=== PATIENT | male | born 1950 | race American Indian/Alaskan Native ===

== ENCOUNTER 2016-09-21 12:26 | Inpatient (IN) | payer MEDICARE ==
[2016-09-21 13:18] LABS: Basophils % (Auto) 0.6 % (0.0-1.8); Eosinophils % (Auto) 1.5 % (0.0-4.3); Hemoglobin 13.6 gm/dl (11.8-15.2); Mean Corpuscular HGB Conc 33 % (32-34); Mean Corpuscular Hemoglobin 31 pg (28-32); Mean Corpuscular Volume 92 fl (84-94); Platelet Count 149 K/mm3 (140-440); Red Blood Count 4.45 M/mm3 (3.65-5.03); Red Cell Distribution Width 13.8 % (13.2-15.2); White Blood Count 6.1 K/mm3 (4.5-11.0)
[2016-09-21 13:38] LABS: Anion Gap 16 mmol/L; Blood Urea Nitrogen 16 mg/dL (9-20); Calcium 8.8 mg/dL (8.4-10.2); Carbon Dioxide 28 mmol/L (22-30); Chloride 102.1 mmol/L (98-107); Glucose 98 mg/dL (75-100); Sodium 142 mmol/L (137-145)
--- NOTE | 2016-09-21 13:45 | XRay Report ---
CHEST TWO VIEWS: 09/21/16 12:26:00 CLINICAL: Shortness of breath. COMPARISON: 08/22/15 FINDINGS: Cardiomegaly and redistribution of pulmonary blood flow to the upper lobes. The lungs are normally expanded and clear. The bones and soft tissues are normal. IMPRESSION: Cardiomegaly and pulmonary venous hypertension.No pulmonary edema.
[2016-09-21 14:29] LABS: Cholesterol 163 mg/dL (50-199); HDL Cholesterol 45 mg/dL (40-59); LDL Cholesterol,Direct 105 mg/dL (50-130); Triglycerides 66 mg/dL (2-149)
[2016-09-21] MEDS ORDERED: PROVENTIL IH ONE ×2 (16:27)
[2016-09-21] MEDS ORDERED: CATAPRES PO ONE (22:28)
[2016-09-21] MEDS ORDERED: LASIX IV ONE (22:28)
--- NOTE | 2016-09-21 22:34 | Emergency Department Report ---
HPI - General Chief Complaint: Dyspnea/Respdistress Time Seen by Provider: 09/21/16 21:47 - HPI HPI: Room 10 The patient is a 65-year-old male presenting with a chief complaint of shortness of breath. Patient states she's had constant shortness of breath over the past 2 weeks. Patient admits to increased shortness of breath with exertion. Patient states he has been out of his Lasix for the past 2 days. Patient denies chest pain, nausea/vomiting or fever. The patient states he has recently changed from 2-3 pillow orthopnea Location: Cardiovascular system/lungs Duration: 2 weeks Quality: Shortness Of breath Severity: Moderate Modifying factors: [see above] Context: [see above] Mode of transportation: [not driving] ED Past Medical Hx - Past Medical History Hx Hypertension: Yes Hx Congestive Heart Failure: Yes - Surgical History Past Surgical History?: No - Family History Family history: no significant - Social History Smoking Status: Former Smoker (none 20 years) Substance Use Type: None - Medications Home Medications: Home Medications Medication Instructions Recorded Confirmed Last Taken Type Carvedilol [Coreg] 25 mg PO BID #60 tablet 08/24/15 Unknown Rx Furosemide [Lasix TAB] 40 mg PO QDAY #30 tablet 08/24/15 Unknown Rx ISOSORBIDE MONOnitrate [Imdur ER] 30 mg PO QDAY #30 tablet 08/24/15 Unknown Rx Losartan [Cozaar] 100 mg PO QDAY #60 tablet 08/24/15 Unknown Rx amLODIPine [Norvasc] 5 mg PO QDAY #30 tablet 08/24/15 Unknown Rx hydrALAZINE [Apresoline TAB] 100 mg PO BID #240 tablet 08/24/15 Unknown Rx ED Review of Systems ROS: Stated complaint: SOB Other details as noted in HPI Comment: All other systems reviewed and negative Constitutional: denies: chills, fever Eyes: denies: eye pain, eye discharge, vision change ENT: denies: ear pain, throat pain Respiratory: cough, orthopnea, shortness of breath, SOB with exertion Cardiovascular: dyspnea on exertion. denies: chest pain, palpitations Endocrine: no symptoms reported Gastrointestinal: denies: abdominal pain, nausea, diarrhea Genitourinary: denies: urgency, dysuria Musculoskeletal: denies: back pain, joint swelling, arthralgia Skin: denies: rash, lesions Neurological: denies: headache, weakness, paresthesias Psychiatric: denies: anxiety, depression Hematological/Lymphatic: denies: easy bleeding, easy bruising Physical Exam - Physical Exam Vital Signs: Vital Signs 09/21/16 09/21/16 09/21/16 12:44 22:16 22:23 Temperature 98.2 F Pulse Rate 73 85 Respiratory 20 17 17 Rate Blood Pressure 193/116 Blood Pressure 214/135 [Right] O2 Sat by Pulse 99 99 Oximetry Physical Exam: GENERAL: The patient is well-developed well-nourished male lying on stretcher not appearing to be in acute distress. [] HEENT: Normocephalic. Atraumatic. Extraocular motions are intact. Patient has moist mucous membranes. NECK: Supple. Trachea midline CHEST/LUNGS: Clear to auscultation. There is no respiratory distress noted. HEART/CARDIOVASCULAR: Regular. There is no tachycardia. There is no gallop rub or murmur. ABDOMEN: Abdomen is soft, nontender. Patient has normal bowel sounds. There is no abdominal distention. SKIN: There is no rash. There is trace bilateral lower extremity pitting edema. There is no diaphoresis. NEURO: The patient is awake, alert, and oriented. The patient is cooperative. The patient has normal speech MUSCULOSKELETAL: There is no evidence of acute injury. ED Course Vital Signs 09/21/16 09/21/16 09/21/16 12:44 22:16 22:23 Temperature 98.2 F Pulse Rate 73 85 Respiratory 20 17 17 Rate Blood Pressure 193/116 Blood Pressure 214/135 [Right] O2 Sat by Pulse 99 99 Oximetry ED Medical Decision Making - Lab Data Result diagrams: 09/21/16 13:02 09/21/16 13:02 Laboratory Tests 09/21/16 09/21/16 13:02 13:02 WBC 6.1 RBC 4.45 Hgb 13.6 Hct 41.0 MCV 92 MCH 31 MCHC 33 RDW 13.8 Plt Count 149 Lymph % (Auto) 23.0 [place] % (Auto) 15.3 H Eos % (Auto) 1.5 Baso % (Auto) 0.6 Lymph # 1.4 [place] # 0.9 H Eos # 0.1 Baso # 0.0 Seg Neutrophils % 59.6 Seg Neutrophils # 3.7 Sodium 142 Potassium 4.0 Chloride 102.1 Carbon Dioxide 28 Anion Gap 16 BUN 16 Creatinine 1.3 Estimated GFR > 60 BUN/Creatinine Ratio 12.30 Glucose 98 Calcium 8.8 Troponin T 0.036 H Triglycerides 66 Cholesterol 163 LDL Cholesterol Direct 105 HDL Cholesterol 45 Cholesterol/HDL Ratio 3.62 - EKG Data -: EKG Interpreted by Me EKG shows normal: sinus rhythm Rate: normal - EKG Data When compared to previous EKG there are: no significant change Interpretation: unchanged when compared t (08/22/2015), nonspecific ST-T wave elvis - Radiology Data Radiology results: image reviewed (chest x-ray) interpreted by me: Chest x-ray-no definite focal infiltrates, no pneumothorax - Differential Diagnosis CHF exacerbation, ACS, pericarditis, pneumonia Critical care attestation.: If time is entered above; I have spent that time in minutes in the direct care of this critically ill patient, excluding procedure time. ED Disposition Clinical Impression: Hypertensive urgency, CHF exacerbation Disposition: OP ADMITTED IP TO THIS HOSP Is pt being admited?: Yes Does the pt Need Aspirin: Yes Condition: Fair Referrals: PRIMARY CARE, [Primary Care Provider] - 3-5 Days Time of Disposition: 22:35 (Hospitalist notified)
[2016-09-21] MEDS ORDERED: ASPIRIN PO ONE (22:36)
--- NOTE | 2016-09-21 22:39 | History and Physical Report ---
History of Present Illness Chief complaint: I cant breathe History of present illness: 65 YO Male with HTN, Diastolic CHF, Medication Noncompliance, presents to ED for evaluation. Pt states that he has experienced shortness of breath for the past 2 weeks with worsening symptoms over the past 2 days. Pt acknowledges Orthopnea, PND. Pt states that he has not taken his medication in several days. Pt denies fever, chills, CP, Palpitaitons, NVD, productive cough, Hemoptysis, recent ill contacts. Past History Past Medical History: heart failure, hypertension Past Surgical History: No surgical history, Other (reviewed) Social history: . denies: smoking, alcohol abuse, prescription drug abuse Family history: hypertension Medications and Allergies Allergies Allergy/AdvReac Type Severity Reaction Status Date / Time No Known Allergies Allergy Unverified 08/22/15 08:53 Home Medications Medication Instructions Recorded Confirmed Last Taken Type Carvedilol [Coreg] 25 mg PO BID #60 tablet 08/24/15 Unknown Rx Furosemide [Lasix TAB] 40 mg PO QDAY #30 tablet 08/24/15 Unknown Rx ISOSORBIDE MONOnitrate [Imdur ER] 30 mg PO QDAY #30 tablet 08/24/15 Unknown Rx Losartan [Cozaar] 100 mg PO QDAY #60 tablet 08/24/15 Unknown Rx amLODIPine [Norvasc] 5 mg PO QDAY #30 tablet 08/24/15 Unknown Rx hydrALAZINE [Apresoline TAB] 100 mg PO BID #240 tablet 08/24/15 Unknown Rx Exam - Constitutional Vitals: Temp Pulse Resp BP Pulse Ox 98.2 F 85 17 214/135 99 09/21/16 12:44 09/21/16 22:23 09/21/16 22:23 09/21/16 22:23 09/21/16 22:23 General appearance: Present: no acute distress, well-nourished - EENT Eyes: Present: PERRL ENT: hearing intact, clear oral mucosa - Neck Neck: Present: supple, normal ROM - Respiratory Respiratory effort: normal Respiratory: bilateral: CTA - Cardiovascular Heart Sounds: Present: S1 & S2. Absent: rub, click - Extremities Extremities: pulses symmetrical, No edema Peripheral Pulses: within normal limits - Abdominal General gastrointestinal: Present: soft, non-tender, non-distended, normal bowel sounds Male genitourinary: Present: normal - Integumentary Integumentary: Present: clear, warm, dry - Musculoskeletal Musculoskeletal: gait normal, strength equal bilaterally - Psychiatric Psychiatric: appropriate mood/affect, intact judgment & insight - Neurologic Neurologic: CNII-XII intact, moves all extremities Results - Labs CBC & Chem 7: 09/21/16 13:02 09/21/16 13:02 Labs: Abnormal lab results 09/21/16 09/21/16 Range/Units 13:02 13:02 Young % (Auto) 15.3 H (0.0-7.3) % Young # 0.9 H (0.0-0.8) K/mm3 Troponin T 0.036 H (0.00-0.029) ng/mL Assessment and Plan - Patient Problems (1) Acute on chronic diastolic heart failure Current Visit: No Status: Acute Plan to address problem: Resume home medication, diuretics, monitor uop q shift, daily weight, fluid restriction, 2 gram sodium diet, telemetry monitoring, serial cardiac enzymes, d dimer. (2) Hypertensive urgency Current Visit: No Status: Acute Plan to address problem: Resume home medication, monitor bp q shift, Target systolic BP overnight, between 165-180. (3) Noncompliance Current Visit: No Status: Acute Plan to address problem: Pt counseled, Pt acknowledges understanding risks of future noncompliance (4) DVT prophylaxis Current Visit: Yes Status: Acute
[2016-09-21] MEDS ORDERED: DUONEB 0.5 MG-3 MG/3 ML SOLN IH PRN (22:44)
[2016-09-21] MEDS ORDERED: TYLENOL PO PRN (22:44)
[2016-09-21] MEDS ORDERED: MILK OF MAGNESIA PO PRN (22:44)
[2016-09-21] MEDS ORDERED: ZOFRAN IV PRN (22:44)
[2016-09-21] MEDS ORDERED: DULCOLAX PR PRN (22:44)
[2016-09-21] MEDS ORDERED: SODIUM CHLORIDE FLUSH SYRINGE 10 ML IV PRN (22:47)
[2016-09-21] MEDS ORDERED: PROVENTIL IH PRN (23:25)
[2016-09-21] MEDS ORDERED: LASIX ONE (23:36)
[2016-09-21] MEDS ORDERED: CATAPRES ONE (23:36)
[2016-09-22] MEDS ORDERED: ASPIRIN ONE (00:09)
--- NOTE | 2016-09-22 00:09 | Admit Criteria Form ---
Admission Criteria Documentation: HYPERTENSION Clinical Indications for Admission to Inpatient Care ( Place "X" for any and all applicable criteria): Admission is indicated for ANY ONE of the following(1)(2)(3)(4): [ ]I. Hypertensive emergency, with evidence of acute and progressing target organ disease as indicated by ANY ONE of the following: [ ]a) Hypertensive encephalopathy (eg, confusion, altered mental status) [ ]b) Cerebral infarction [ ]c) Intracranial hemorrhage [ ]d) Myocardial ischemia or infarction [ ]e) Pulmonary edema [ ]f) Aortic dissection [ ]g) Seizure [ ]h) Acute renal insufficiency [ ]i) Papilledema [ ]j) Microangiopathic hemolytic anemia [ ]II. Adrenergic crisis (eg, severe hypertension due to pheochromocytoma crisis, cocaine or amphetamine intoxication, or clonidine withdrawal) [X ]III. Severe hypertension (SBP greater than 180 mmHg or DBP greater than 110 mmHg or greater than the 95th percentile for age, gender, and height in pediatric patients) that cannot be controlled (eg, to SBP less than 160 mmHg and DBP less than 100 mmHg in adults) by treatment with oral medication in emergency department or observation care Extended stay beyond goal length of stay may be needed for(11)(12)(13): [ ]a) Persistent hypertensive encephalopathy [ ]b) Continuation of pulmonary edema [ ]c) Recurring or persistent severe hypertension [ ]d) Target organ damage (eg, angina, stroke, aortic dissection) [ ]e) Associated renal insufficiency The original [employer] content created by [employer] has been revised. The portions of the content which have been revised are identified through the use of italic text or in bold, and [facility] has neither reviewed nor approved the modified material. All other unmodified content is copyright [employer]. Please see references footnoted in the original [employer] edition 2016 Admission Criteria Met: Yes
[2016-09-22 02:50] LABS: Creatine Kinase MB 2.2 ng/mL (0.0-4.0)
[2016-09-22 08:53] LABS: Creatine Kinase MB 2.1 ng/mL (0.0-4.0)
[2016-09-22] MEDS: COZAAR PO SCH (09:59)
[2016-09-22] MEDS: LASIX PO SCH (10:00)
[2016-09-22] MEDS: IMDUR PO SCH (10:00)
[2016-09-22] MEDS: NORVASC PO SCH (10:01)
[2016-09-22] MEDS: APRESOLINE PO SCH ×2 (10:02→21:36)
[2016-09-22] MEDS: COREG PO SCH ×2 (10:02→21:36)
--- NOTE | 2016-09-22 15:38 | Progress Note ---
Assessment and Plan Assessment and plan: 65 YO Male with HTN, Diastolic CHF, Medication Noncompliance, presents to ED for evaluation. Pt states that he has experienced shortness of breath for the past 2 weeks with worsening symptoms over the past 2 days. Pt acknowledges Orthopnea, PND. Pt states that he has not taken his medication in several days. Pt denies fever, chills, CP, Palpitaitons, NVD, productive cough, Hemoptysis, recent ill contacts. (1) Acute on chronic diastolic heart failure Current Visit: No Status: Acute Plan to address problem: Resume home medication, diuretics, monitor uop q shift, daily weight, fluid restriction, 2 gram sodium diet, telemetry monitoring, serial cardiac enzymes, d dimer. last echo 08/22/2015 reviewed, EF 50-55% cardiology consultation. SCHEDULED NEBS (2) Hypertensive urgency Current Visit: No Status: Acute Plan to address problem: Resume home medication, monitor bp q shift, Target systolic BP overnight, between 165-180. (3) Noncompliance Current Visit: No Status: Acute Plan to address problem: Pt counseled, Pt acknowledges understanding risks of future noncompliance (4) possible COPD hx of tobacco abuse. SCHEDULE NEBS RECOMMEND PFT OUTPATIENT. (5) DVT prophylaxis Current Visit: Yes Status: Acute History Interval history: Patient seen and examined this morning and in no acute distress reports some improvement in symptoms. Hospitalist Physical - Physical exam Narrative exam: VITAL SIGNS: Reviewed. GENERAL: The patient appeared well nourished and normally developed. Vital signs as documented. HEAD: No signs of head trauma. EYES: Pupils are equal. Extraocular motions intact. EARS: Hearing grossly intact. MOUTH: Oropharynx is normal. NECK: No adenopathy, no JVD. CHEST: Chest with diminished breath sounds bilaterally. Mild expiratory wheeze but no rales or rhonchi. CARDIAC: Regular rate and rhythm. S1 and S2, without murmurs, gallops, or rubs. VASCULAR: No Edema. Peripheral pulses normal and equal in all extremities. ABDOMEN: Soft, without detectable tenderness. No sign of distention. No rebound or guarding, and no masses palpated. Bowel Sounds normal. MUSCULOSKELETAL: Good range of motion of all major joints. Extremities without clubbing, cyanosis or edema. NEUROLOGIC EXAM: Alert and oriented x 3. No focal sensory or strength deficits. Speech normal. Follows commands. PSYCHIATRIC: Mood normal. SKIN: No rash or lesions. - Constitutional Vitals: Temp Pulse Resp BP Pulse Ox 98.9 F 67 18 106/58 99 09/22/16 10:06 09/22/16 13:36 09/22/16 10:06 09/22/16 13:36 09/22/16 10:06 General appearance: Present: no acute distress, well-nourished Results - Labs CBC & Chem 7: 09/21/16 13:02 09/21/16 13:02 Labs: Laboratory Last Values WBC 6.1 K/mm3 (4.5-11.0) 09/21/16 13:02 RBC 4.45 M/mm3 (3.65-5.03) 09/21/16 13:02 Hgb 13.6 gm/dl (11.8-15.2) 09/21/16 13:02 Hct 41.0 % (35.5-45.6) 09/21/16 13:02 MCV 92 fl (84-94) 09/21/16 13:02 MCH 31 pg (28-32) 09/21/16 13:02 MCHC 33 % (32-34) 09/21/16 13:02 RDW 13.8 % (13.2-15.2) 09/21/16 13:02 Plt Count 149 K/mm3 (140-440) 09/21/16 13:02 Lymph % (Auto) 23.0 % (13.4-35.0) 09/21/16 13:02 [place] % (Auto) 15.3 % (0.0-7.3) H 09/21/16 13:02 Eos % (Auto) 1.5 % (0.0-4.3) 09/21/16 13:02 Baso % (Auto) 0.6 % (0.0-1.8) 09/21/16 13:02 Lymph # 1.4 K/mm3 (1.2-5.4) 09/21/16 13:02 [place] # 0.9 K/mm3 (0.0-0.8) H 09/21/16 13:02 Eos # 0.1 K/mm3 (0.0-0.4) 09/21/16 13:02 Baso # 0.0 K/mm3 (0.0-0.1) 09/21/16 13:02 Seg Neutrophils % 59.6 % (40.0-70.0) 09/21/16 13:02 Seg Neutrophils # 3.7 K/mm3 (1.8-7.7) 09/21/16 13:02 D-Dimer < 135 ng/mlDDU (0-234) 09/21/16 23:20 Sodium 142 mmol/L (137-145) 09/21/16 13:02 Potassium 4.0 mmol/L (3.6-5.0) 09/21/16 13:02 Chloride 102.1 mmol/L (98-107) 09/21/16 13:02 Carbon Dioxide 28 mmol/L (22-30) 09/21/16 13:02 Anion Gap 16 mmol/L 09/21/16 13:02 BUN 16 mg/dL (9-20) 09/21/16 13:02 Creatinine 1.3 mg/dL (0.8-1.5) 09/21/16 13:02 Estimated GFR > 60 ml/min 09/21/16 13:02 BUN/Creatinine Ratio 12.30 % 09/21/16 13:02 Glucose 98 mg/dL (75-100) 09/21/16 13:02 Calcium 8.8 mg/dL (8.4-10.2) 09/21/16 13:02 Total Creatine Kinase 100 units/L (55-170) 09/22/16 08:06 CK-MB (CK-2) 2.1 ng/mL (0.0-4.0) 09/22/16 08:06 CK-MB (CK-2) Rel Index 2.1 (0-4) 09/22/16 08:06 Troponin T 0.038 ng/mL (0.00-0.029) H 09/22/16 08:06 Triglycerides 66 mg/dL (2-149) 09/21/16 13:02 Cholesterol 163 mg/dL (50-199) 09/21/16 13:02 LDL Cholesterol Direct 105 mg/dL (50-130) 09/21/16 13:02 HDL Cholesterol 45 mg/dL (40-59) 09/21/16 13:02 Cholesterol/HDL Ratio 3.62 % 09/21/16 13:02 - Imaging and Cardiology Chest x-ray: image reviewed (pulmonary vascular congestion)
[2016-09-22] MEDS ORDERED: DUONEB 0.5 MG-3 MG/3 ML SOLN IH SCH (20:00)
[2016-09-23] MEDS ORDERED: DUONEB 0.5 MG-3 MG/3 ML SOLN IH SCH (08:00)
--- NOTE | 2016-09-23 08:37 | Discharge Summary ---
Providers - Providers Date of Admission: 09/21/16 22:44 Date of discharge: 09/23/16 Attending physician: DOUGLAS PLUMMER MD 09/21/16 Consult to Cardiac Rehabilitation [CONS] Routine Reason For Exam: Phase I 09/22/16 09:30 Consult to Physician [CONS] Routine Consulting Provider: ALEXANDRA ALMENDAREZ Reason For Exam: chf Place consult to:: Dr. Almendarez Notified:: Ligia HANKS Phone number called:: Was contact made?: Yes If yes, spoke with:: [employer] Time called:: 10:22 Primary care physician: [employer] Hospitalization Reason for admission: chest pain Condition: Stable Hospital course: 65 YO Male with HTN, Diastolic CHF, Medication Noncompliance, presents to ED for evaluation. Pt states that he has experienced shortness of breath for the past 2 weeks with worsening symptoms over the past 2 days. Pt acknowledges Orthopnea, PND. Pt states that he has not taken his medication in several days. Pt denies fever, chills, CP, Palpitaitons, NVD, productive cough, Hemoptysis, recent ill contacts. Patient on admission was given a dose of Lasix with good improvement. I did review his recent echocardiogram which showed an EF of 50-55 %. With diastolic dysfunction. We did discuss need to be compliant patient verbalized understanding he does have a remote history of tobacco use for which I recommended outpatient evaluation for obstructive pulmonary disease. He is clinically stable at this time for discharge and to follow-up with cardiology outpatient with his primary care physician. Leroy. Discussion and education was provided (1) Acute on chronic diastolic heart failure (2) Hypertensive urgency (3) Noncompliance (4) acute on chronic respiratory failure secondary to heart failure Disposition: DISCHARGED TO HOME OR SELFCARE Time spent for discharge: 35 mins Core Measure Documentation - Palliative Care Palliative Care/ Comfort Measures: Not Applicable - Core Measures Any of the following diagnoses?: heart failure - Heart Failure Discharge Requirements MELODY/ARB for LVSD if EF <40%: Not Applicable Beta eva at discharge: Yes Exam - Physical Exam Narrative exam: VITAL SIGNS: Reviewed. GENERAL: The patient appeared well nourished and normally developed. Vital signs as documented. HEAD: No signs of head trauma. EYES: Pupils are equal. Extraocular motions intact. EARS: Hearing grossly intact. MOUTH: Oropharynx is normal. NECK: No adenopathy, no JVD. CHEST: Chest with diminished breath sounds bilaterally. No wheeze but no rales or rhonchi. CARDIAC: Regular rate and rhythm. S1 and S2, without murmurs, gallops, or rubs. VASCULAR: No Edema. Peripheral pulses normal and equal in all extremities. ABDOMEN: Soft, without detectable tenderness. No sign of distention. No rebound or guarding, and no masses palpated. Bowel Sounds normal. MUSCULOSKELETAL: Good range of motion of all major joints. Extremities without clubbing, cyanosis or edema. NEUROLOGIC EXAM: Alert and oriented x 3. No focal sensory or strength deficits. Speech normal. Follows commands. PSYCHIATRIC: Mood normal. SKIN: No rash or lesions. - Constitutional Vitals: Temp Pulse Resp BP Pulse Ox 98.8 F 92 H 20 143/75 97 09/23/16 05:52 09/23/16 05:52 09/23/16 05:52 09/23/16 05:52 09/23/16 05:52 Plan Activity: advance as tolerated, fall precautions Special Instructions: record daily weights, record daily BP diary, record blood sugar diary, smoking cessation Follow up with: PRIMARY CARE, [Primary Care Provider] - 3-5 Days ALEXANDRA ALMENDAREZ MD [Staff Physician] - 7 Days Prescriptions: amLODIPine [Norvasc] 5 mg PO QDAY #30 tablet Carvedilol [Coreg] 25 mg PO BID #60 tablet Furosemide [Lasix TAB] 40 mg PO QDAY #30 tablet ISOSORBIDE MONOnitrate [Imdur ER] 30 mg PO QDAY #30 tablet
[2016-09-23] MEDS: LASIX PO SCH (10:33)
[2016-09-23] MEDS: COZAAR PO SCH (10:33)
[2016-09-23] MEDS: APRESOLINE PO SCH (10:34)
[2016-09-23] MEDS: IMDUR PO SCH (10:34)
[2016-09-23] MEDS: NORVASC PO SCH (10:35)
[2016-09-23] MEDS: COREG PO SCH (10:35)
[2016-09-23 12:14] VITALS: BP 110/55
--- NOTE | 2016-09-23 12:51 | Event Note ---
Date: 09/23/16 Full cardiology consult dictated. Pt may discharge home from cardiology standpoint. Recommend follow up in our office with Dr. VI Webb within 1 week of hospital discharge ([phone]). Manuela BLANKENSHIP NP / DR. BRIAN
--- NOTE | 2016-09-24 05:06 | Consultation ---
REASON FOR CONSULTATION: Congestive heart failure. HISTORY OF PRESENT ILLNESS: This is a 65-year-old patient who is followed in our office by Dr. Vinicio Webb, came to the Emergency Room with increasing symptoms of heart failure, namely orthopnea and dyspnea on exertion and edema of the legs. The patient did not take his medications for few days. The patient denies any chest pain. The patient was admitted last year with symptoms and signs of congestive heart failure. He was noted to have severe left ventricular hypertrophy and preserved ejection fraction to 55%. Impaired relaxation and moderate mitral regurgitation and [id number] aortic regurgitation, moderate tricuspid regurgitation noted at that time. MEDICATIONS: The patient is supposed to be on the following medications: 1. Carvedilol 25 mg b.i.d. 2. Lasix 40 mg once a day, which he ran out a few days ago. 3. Isosorbide mononitrate 30 mg once a day. 4. Losartan 100 mg once a day. 5. Amlodipine 5 mg a day. 6. Hydralazine 100 mg twice a day. PAST MEDICAL HISTORY: The patient is noted to have a nonischemic cardiomyopathy, and he has improved ejection fraction to normal levels. He does have normal coronaries from cardiac catheterization done in 2012. SOCIAL HISTORY: The patient is . He does not smoke. Does not take any alcohol. FAMILY HISTORY: Positive for hypertension. PHYSICAL EXAMINATION: VITAL SIGNS: Blood pressure upon admission 214/135, pulse rate 84 per minute, respirations 18 per minute, blood pressure has improved to 180/95 with mean blood pressure of 123. NECK: No JVP elevation. HEART: PMI is not palpable. S4 is noted. He has got grade 3/6 systolic murmur heard at the apex and also at left sternal border. LUNGS: Revealed few rales at the right base. ABDOMEN: Soft, nontender. Liver and spleen not palpable. Bowel sounds are active. EXTREMITIES: No edema. Good pulses. LABORATORY DATA: Normal WBC count 6100 and hemoglobin 13.6 grams percent. Potassium 4.0. BUN is 16, creatinine 1.3. Glucose 98 mg percent. Troponin levels are flat at 0.036. Cholesterol is 163 mg percent. LDL is 105 mg percent. HDL 45. IMAGING: Chest x-ray revealed cardiomegaly with pulmonary venous hypertension. EKG revealed left ventricular hypertrophy with ST-T wave changes. IMPRESSION: 1. Acute diastolic heart failure on chronic diastolic heart failure. 2. Extremely high blood pressure contributing to heart failure. 3. Nonischemic cardiomyopathy. 4. Hyperlipidemia, on treatment. DISCUSSION: The patient needs to control the blood pressure in the range of 130-140 systolic at the most. To be strict with the low-salt diet. I had talked to him about diet and compliance of medications. The patient can be discharged and to be followed within a week in the office for further management. JOB# [id number] LILIANA/NTS
== END 2016-09-23 13:21 | disposition home or self-care (01) | DRG 291 ==
LOC: ED 12:26 → 4A 22:44
PROVIDERS: ADMIT Internal Medicine; ATTEND Internal Medicine
DX: I11.0 Hypertensive heart disease with heart failure (principal); J96.20 Acute and chronic respiratory failure, unspecified whether with hypoxia or hypercapnia; I16.0 Hypertensive urgency; I50.33 Acute on chronic diastolic (congestive) heart failure; I42.9 Cardiomyopathy, unspecified; E78.5 Hyperlipidemia, unspecified; Z91.14 Patient's other noncompliance with medication regimen; Z71.89 Other specified counseling; Z87.891 Personal history of nicotine dependence; Z82.49 Family history of ischemic heart disease and other diseases of the circulatory system
CPT/HCPCS: 36415; 71020; 80048; 80061; 82550; 82553; 84484; 85025; 85379; 93005; 93010; 94640; 96374; J1940

== ENCOUNTER 2018-07-07 01:08 | Inpatient (IN) | payer MEDICARE, SELFPAY ==
[2018-07-07] MEDS ORDERED: APRESOLINE IV ONE (01:29)
[2018-07-07] MEDS ORDERED: ATROVENT IH ONE (01:30)
[2018-07-07] MEDS ORDERED: PROVENTIL IH ONE ×2 (01:30→01:34)
--- NOTE | 2018-07-07 01:41 | XRay Report ---
PROCEDURE: XR CHEST 1V AP TECHNIQUE: A portable upright view of the chest was obtained. HISTORY: Shortness of breath COMPARISONS: None available for comparison at this time. FINDINGS: The heart is moderately enlarged. The lungs are not congested. There are no infiltrates or effusions. The skeletal structures do not show any acute changes. IMPRESSION: Cardiomegaly. No acute cardiopulmonary process.. This document is electronically signed by Benton Odell MD., July 07 2018 01:40:03 AM ET
[2018-07-07 01:50] LABS: Basophils % (Auto) 0.3 % (0.0-1.8); Eosinophils % (Auto) 0.6 % (0.0-4.3); Hematocrit 40.6 % (35.5-45.6); Hemoglobin 13.7 gm/dl (11.8-15.2); Lymphocytes # (Auto) 1.3 K/mm3 (1.2-5.4); Lymphocytes % (Auto) 20.6 % (13.4-35.0); Mean Corpuscular HGB Conc 34 % (32-34); Mean Corpuscular Volume 91 fl (84-94); Monocytes # (Auto) 0.5 K/mm3 (0.0-0.8); Monocytes % (Auto) 8.3 % (0.0-7.3); Platelet Count 150 K/mm3 (140-440); Red Blood Count 4.48 M/mm3 (3.65-5.03); Red Cell Distribution Width 13.4 % (13.2-15.2)
[2018-07-07 02:13] LABS: BUN/Creatinine Ratio 11; Blood Urea Nitrogen 14 mg/dL (9-20); Calcium 8.7 mg/dL (8.4-10.2); Hemolysis Index 5
--- NOTE | 2018-07-07 02:13 | Emergency Department Report ---
ED Shortness of Breath HPI - General Chief Complaint: Dyspnea/Respdistress Stated Complaint: CHEST PAIN/SOB Time Seen by Provider: 07/07/18 01:28 Source: patient Mode of arrival: Wheelchair Limitations: No Limitations - History of Present Illness Initial Comments: 67-year-old male with history of CHF presents to ED with complaint of shortness of breath. Patient reports several day history of dry cough, denies fever. Reports very mild left-sided chest pain, denies swelling to lower extremities. MD Complaint: shortness of breath -: days(s) (3) Consistency: constant Improves With: nothing Worsens With: exertion Known History Of: congestive heart failure Context: recent URI Associated Symptoms: chest pain, cough - Related Data Previous Rx's Medication Instructions Recorded Last Taken Type Losartan [Cozaar] 100 mg PO QDAY #60 tablet 08/24/15 Unknown Rx hydrALAZINE [Apresoline TAB] 100 mg PO BID #240 tablet 08/24/15 Unknown Rx Carvedilol [Coreg] 25 mg PO BID #60 tablet 09/23/16 Unknown Rx Furosemide [Lasix TAB] 40 mg PO QDAY #30 tablet 09/23/16 Unknown Rx ISOSORBIDE MONOnitrate [Imdur ER] 30 mg PO QDAY #30 tablet 09/23/16 Unknown Rx amLODIPine [Norvasc] 5 mg PO QDAY #30 tablet 09/23/16 Unknown Rx Allergies Allergy/AdvReac Type Severity Reaction Status Date / Time No Known Allergies Allergy Unverified 08/22/15 08:53 ED Review of Systems ROS: Stated complaint: CHEST PAIN/SOB Other details as noted in HPI Comment: All other systems reviewed and negative Constitutional: denies: chills, fever Respiratory: cough, shortness of breath Cardiovascular: chest pain Musculoskeletal: other (denies lower extremity swelling or pain) ED Past Medical Hx - Past Medical History Previous Medical History?: Yes Hx Hypertension: Yes Hx Congestive Heart Failure: Yes - Surgical History Past Surgical History?: No - Social History Smoking Status: Never Smoker Substance Use Type: None - Medications Home Medications: Home Medications Medication Instructions Recorded Confirmed Last Taken Type Losartan [Cozaar] 100 mg PO QDAY #60 tablet 08/24/15 Unknown Rx hydrALAZINE [Apresoline TAB] 100 mg PO BID #240 tablet 08/24/15 Unknown Rx Carvedilol [Coreg] 25 mg PO BID #60 tablet 09/23/16 Unknown Rx Furosemide [Lasix TAB] 40 mg PO QDAY #30 tablet 09/23/16 Unknown Rx ISOSORBIDE MONOnitrate [Imdur ER] 30 mg PO QDAY #30 tablet 09/23/16 Unknown Rx amLODIPine [Norvasc] 5 mg PO QDAY #30 tablet 09/23/16 Unknown Rx ED Physical Exam - General Limitations: No Limitations General appearance: alert - Head Head exam: Present: atraumatic, normocephalic - Eye Eye exam: Present: normal appearance - ENT ENT exam: Present: mucous membranes moist - Neck Neck exam: Present: normal inspection - Respiratory Respiratory exam: Present: respiratory distress (mild), wheezes, prolonged expiratory, other (tachypneic) - Cardiovascular Cardiovascular Exam: Present: normal rhythm, tachycardia - GI/Abdominal GI/Abdominal exam: Present: soft. Absent: distended, tenderness - Extremities Exam Extremities exam: Present: normal inspection. Absent: pedal edema, calf tenderness - Neurological Exam Neurological exam: Present: alert, oriented X3, CN II-XII intact. Absent: motor sensory deficit - Psychiatric Psychiatric exam: Present: normal affect, normal mood - Skin Skin exam: Present: warm, dry, intact, normal color ED Course Vital Signs 07/07/18 07/07/18 07/07/18 01:09 01:28 01:30 Temperature 98.5 F Pulse Rate 124 H 117 H 113 H Pulse Rate [ Anterior Bilateral Throughout] Respiratory 26 H 28 H 9 L Rate Respiratory Rate [Anterior Bilateral Throughout] Blood Pressure 221/128 209/131 Blood Pressure 222/147 [Right] O2 Sat by Pulse 97 95 97 Oximetry 07/07/18 07/07/18 07/07/18 01:31 01:46 02:00 Temperature Pulse Rate 106 H 104 H Pulse Rate [ Anterior Bilateral Throughout] Respiratory 28 H 28 H 22 Rate Respiratory Rate [Anterior Bilateral Throughout] Blood Pressure 195/122 186/107 Blood Pressure [Right] O2 Sat by Pulse 97 100 100 Oximetry 07/07/18 07/07/18 07/07/18 02:16 02:30 02:35 Temperature Pulse Rate 115 H 112 H Pulse Rate [ 101 H Anterior Bilateral Throughout] Respiratory 16 23 Rate Respiratory 20 Rate [Anterior Bilateral Throughout] Blood Pressure 196/115 206/124 Blood Pressure [Right] O2 Sat by Pulse 100 100 Oximetry 07/07/18 07/07/18 07/07/18 02:36 03:00 03:30 Temperature Pulse Rate 115 H 118 H 117 H Pulse Rate [ Anterior Bilateral Throughout] Respiratory 27 H 16 Rate Respiratory Rate [Anterior Bilateral Throughout] Blood Pressure 206/124 205/122 191/114 Blood Pressure [Right] O2 Sat by Pulse 100 97 Oximetry 07/07/18 07/07/18 04:20 04:30 Temperature Pulse Rate 95 H 95 H Pulse Rate [ Anterior Bilateral Throughout] Respiratory 28 H 44 H Rate Respiratory Rate [Anterior Bilateral Throughout] Blood Pressure 160/105 152/97 Blood Pressure [Right] O2 Sat by Pulse 96 97 Oximetry - Reevaluation(s) Reevaluation #1: 07/07/18 02:25 Albuterol nebs currently being administered, pt states he feeling much better. ED Medical Decision Making - Lab Data Result diagrams: 07/07/18 01:31 07/07/18 01:31 - EKG Data -: EKG Interpreted by Sc EKG shows normal: sinus rhythm, axis, intervals, QRS complexes - EKG Data Interpretation: no acute changes, LVH, other (occasional PVCs) - Radiology Data Radiology results: report reviewed, image reviewed - Medical Decision Making 67-year-old male with shortness of breath. Patient initially with decreased breath sounds and faint wheezes present. Albuterol nebs given, patient reports feeling better following administration. The patient was hypertensive despite h ydralazine, clonidine, so Cardene drip initiated. CTA negative for PE, shows probable CHF but no edema present. IV Lasix given. BP currently improved from Cardene drip with blood pressure 152/97. Troponin slightly elevated at 0.06, no ST changes on EKG. No chest pain currently. Will admit the patient to hospitalist, Dr Kearns, for further workup. - Differential Diagnosis CHF, pneumonia, URI, PE Critical Care Time: Yes Critical care time in (mins) excluding proc time.: 60 Critical care attestation.: If time is entered above; I have spent that time in minutes in the direct care of this critically ill patient, excluding procedure time. Critical Care Time: 60 minutes ED Disposition Clinical Impression: Acute exacerbation of CHF (congestive heart failure), Hypertensive emergency, Hypokalemia Disposition: OP ADMIT IP TO THIS HOSP Is pt being admited?: Yes Condition: Stable Instructions: Hypertension (ED) Referrals: OTTO BLEDSOE MD [Primary Care Provider] - 3-5 Days Time of Disposition: 04:25
[2018-07-07] MEDS ORDERED: K-DUR PO ONE (02:14)
[2018-07-07] MEDS ORDERED: CATAPRES PO ONE (02:26)
[2018-07-07 02:55] LABS: Chol/HDL Ratio 4.26 %
[2018-07-07] MEDS ORDERED: CARDENE 50 MG in NACL 0.9% 250ML 230 ML IV SCH (04:00)
--- NOTE | 2018-07-07 04:18 | Cat Scan Report ---
PROCEDURE: CT ANGIO CHEST TECHNIQUE: A CT angiogram was performed following the intravenous injection of IV contrast. Rotation al, sagittal, and coronal MIP reconstructions were reviewed. HISTORY: sob COMPARISONS: The chest x-ray of 07/07/2018 FINDINGS: The heart is moderately enlarged. Pericardial fluid is not seen. The thoracic aorta is ectatic. There is no evidence of dissection. The lungs reveal generalized interstitial prominence. There are no inf iltrates or effusions. There is no evidence of adenopathy. At the thoracic inlet the thyroid gland ap pears normal. In the upper abdomen the adrenal glands appear normal. The skeletal structures reveal d isc degeneration in the dorsal spine. IMPRESSION: No evidence of pulmonary embolus, or aortic dissection. Currently. Mild generalized interstitial prominence in the chest. Mild congestive heart failure canno t be excluded. No localized infiltrates or effusions.. This document is electronically signed by Benton Odell MD., July 07 2018 04:15:38 AM ET
[2018-07-07] MEDS ORDERED: LASIX IV ONE (04:24)
[2018-07-07] MEDS ORDERED: PROVENTIL IH PRN (05:06)
[2018-07-07] MEDS ORDERED: ZOFRAN IV PRN (05:08)
[2018-07-07] MEDS ORDERED: TYLENOL PO PRN (05:34)
[2018-07-07] MEDS: NITRO-BID 2% TP SCH ×4 (06:27→19:01)
--- NOTE | 2018-07-07 06:29 | History and Physical Report ---
CHIEF COMPLAINT: Shortness of breath. HISTORY OF PRESENTING ILLNESS: The patient is a 67-year-old male with known history of CHF, presenting with shortness of breath, going on for a few days and associated with dry cough. There is no history of fever or chills. There is history of associated chest discomfort. There is no history of swelling in the lower extremity. No history of nausea, vomiting, or diaphoresis. Also, the patient denied history of dizziness and presented for evaluation. PAST MEDICAL HISTORY: Pertinent for hypertension, congestive heart failure. PAST SURGICAL HISTORY: Unremarkable. FAMILY HISTORY: Family history is noncontributory. SOCIAL HISTORY: The patient does not smoke, does not drink alcohol and does not use illicit drugs. MEDICATIONS: The patient is on losartan or Cozaar 100 mg by mouth daily, hydralazine 100 mg by mouth twice daily, carvedilol 25 mg by mouth twice daily, Lasix 40 mg by mouth daily, isosorbide mononitrate 30 mg by mouth daily, amlodipine 5 mg by mouth daily. ALLERGIES: There are no known drug allergies. REVIEW OF SYSTEMS: CONSTITUTIONAL: There is no fever, no chills, no diaphoresis. HEENT: There is no headache or sore throat. CARDIOVASCULAR SYSTEM: There is some chest discomfort, but no orthopnea. RESPIRATORY SYSTEM: Shortness of breath is present. Cough is present. GASTROINTESTINAL SYSTEM: There is no nausea, no vomiting, no abdominal pain, diarrhea or constipation. NEUROLOGICAL SYSTEM: There is no numbness, no dizziness, no altered mental status. MUSCULOSKELETAL SYSTEM: There is no joint pain or swelling. DERMATOLOGICAL SYSTEM: There is no skin rash or itching. GENITOURINARY SYSTEM: There is no dysuria, hematuria or flank pain. Rest of system review is normal. PHYSICAL EXAMINATION: GENERAL: At the time of exam, the patient was found to be alert, oriented x 3 and not in acute distress. VITAL SIGNS: At the initial time of presentation show temperature of 98.5 degrees Fahrenheit, pulse of 124, respiration 26, blood pressure 221/128 with O2 sat of 97%, blood pressure later came down to 152/97 with treatment. HEENT: Showed pupils to be equal, round, reactive to light and accommodating. Extraocular muscles are intact. NECK: Neck is supple with no JVD or carotid bruit. CARDIOVASCULAR SYSTEM: Showed normal first and second heart sounds with no gallops or murmurs. RESPIRATORY SYSTEM: Show good air entry on both sides of the lungs with no abnormal breath sounds. GASTROINTESTINAL SYSTEM: Show abdomen to be full, soft, nontender with no organomegaly or rigidity. NEUROLOGICAL: Neuro exam shows no focal deficit. MUSCULOSKELETAL SYSTEM: Show no joint swelling or tenderness. DERMATOLOGICAL SYSTEM: Show no skin rash. GENITOURINARY SYSTEM: Show no costovertebral angle tenderness. PERTINENT LABORATORY DATA AND IMAGING STUDIES: The patient has chest x-ray done and chest x-ray shows no acute cardiopulmonary lesion. The patient also has CT angiogram of the chest done and CT angiogram of the chest shows no evidence of pulmonary embolus or aortic dissection, but there is finding of mild generalized interstitial prominence in the chest with mild congestive heart failure. There is no localized infiltrate or effusion according to the radiologist. Lab results show CBC with normal white count, normal hemoglobin and normal hematocrit with CBC differential showing very mild elevation level of 70.2. The patient's chemistry showed low potassium level of 3.2 and troponin level is elevated with a value of 0.063. Brain natriuretic peptide level is high with a value of 13,729. DIAGNOSES: 1. Congestive heart failure exacerbation. 2. Hypertensive crisis. 3. Hypokalemia. 4. Elevated Troponin level PLAN OF CARE: 1. The patient will be admitted to critical care unit because of IV Cardene drip that was started in the Emergency Room and patient will continue to be on Cardene drip until blood pressure remains stable at a level below 160/90. 2. The patient will be on IV Lasix 40 mg daily and will be on nitro paste half inch to anterior chest wall q.i.d. 3. The patient will be on p.r.n. medications like IV Zofran 4 mg every 8 hours for nausea and vomiting and will be on Tylenol 650 mg by mouth every 4 hours for fever and headache. 4. The patient will have critical care consult with Dr. Stover for ICU admission requiring Cardene drip monitoring and will also have Cardiology consult with [facility] that the patient has seen one time in the past for management of CHF with elevated troponin level. 5. The patient will have cardiac enzymes checked q. 6 hours x 2 more level and that will involve troponin level and creatinine with CK-MB. 6. The patient will have basic metabolic panel checked this morning to monitor potassium level. 7. The patient will have 2D echo done this morning, which will be read by [facility]. 8. The patient will be on his home medication as shown in the medication reconciliation section. 9. The patient will be on heparin 5000 units subcutaneous q. 12 hours for DVT prophylaxis and will be on aspirin 325 mg by mouth daily. 10. The patient will be on oxygen by nasal cannula at 2 liters per minute. JOB# [id number] OCN/NTS MTDSun
[2018-07-07 07:45] LABS: Creatine Kinase MB 2.8 ng/mL (0.0-4.0)
--- NOTE | 2018-07-07 09:03 | Progress Note ---
Assessment and Plan Assessment and plan: Patient is a 67 year old male with hx of HTN, Diastolic CHF, Medication Noncompliance, presents to ED for evaluation. Per patient he has been having dry cough with shortness of breath for a few days. Pt states that he has not taken his medication in several days. Pt denies fever, chills, CP, Palpitations, NVD, productive cough, Hemoptysis, recent ill contacts. He does not recall the last time he saw his doctors. He states compliance with his diet but not with daily weight. In the ED: CTA- Negative for PE CXR - Cardiomegaly, Negative for any acute disease Patient was started on cardene drip with improvement in BP now weaned off and placed on oral meds (1) Hypertensive Urgency- Now resolved (2) Hypertension (3) Acute on chronic diastolic heart failure: EF 08/22/15- 50-55% WITH Abnormal left ventricular diastolic filling (4) Hypokalemia (5) Noncompliance (6) Chronic elevated troponin (7) EX-smoker (8) COPD with seasonal exacerbation. PLAN * Continue current management as initiated * Downgrade to Telemetry * Check K in am * Await cardiology eval * Restarted Home meds * May need repeat Echo if no recent one outpatient * Counselling on medication compliance, will also recommend PCP to initiate screen for early dementia * DVT/GI prophy * Spoke Daughter who mentioned that the change in weather affects his breathing and occurs at this time of the year. * On discharge will recommend Outpatient pulmonary eval for seasonal exertional dyspnea. 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 Hospitalist Physical - Physical exam Narrative exam: Narrative exam: VITAL SIGNS: Reviewed. GENERAL: The patient appeared well nourished and normally developed. Vital signs as documented. HEAD: No signs of head trauma. EYES: Pupils are equal. Extraocular motions intact. EARS: Hearing grossly intact. MOUTH: Oropharynx is normal. NECK: No adenopathy, no JVD. CHEST: Chest with diminished breath sounds bilaterally. Mild expiratory wheeze but no rales or rhonchi. CARDIAC: Regular rate and rhythm. S1 and S2, without murmurs, gallops, or rubs. VASCULAR: No Edema. Peripheral pulses normal and equal in all extremities. ABDOMEN: Soft, without detectable tenderness. No sign of distention. No rebound or guarding, and no masses palpated. Bowel Sounds normal. MUSCULOSKELETAL: Good range of motion of all major joints. Extremities without clubbing, cyanosis or edema. NEUROLOGIC EXAM: Alert and oriented x 3. No focal sensory or strength deficits. Speech normal. Follows commands. Although appears to have some forgetfullness. PSYCHIATRIC: Mood normal. SKIN: No rash or lesions. - Constitutional Vitals: Temp Pulse Resp BP Pulse Ox 98.5 F 87 17 130/85 99 07/07/18 01:09 07/07/18 07:40 07/07/18 07:40 07/07/18 08:30 07/07/18 08:30 Results - Labs CBC & Chem 7: 07/07/18 01:31 07/07/18 01:31 Labs: Laboratory Last Values WBC 6.4 K/mm3 (4.5-11.0) 07/07/18 01:31 RBC 4.48 M/mm3 (3.65-5.03) 07/07/18 01:31 Hgb 13.7 gm/dl (11.8-15.2) 07/07/18 01:31 Hct 40.6 % (35.5-45.6) 07/07/18 01:31 MCV 91 fl (84-94) 07/07/18 01:31 MCH 31 pg (28-32) 07/07/18 01:31 MCHC 34 % (32-34) 07/07/18 01:31 RDW 13.4 % (13.2-15.2) 07/07/18 01:31 Plt Count 150 K/mm3 (140-440) 07/07/18 01:31 Lymph % (Auto) 20.6 % (13.4-35.0) 07/07/18 01:31 [place] % (Auto) 8.3 % (0.0-7.3) H 07/07/18 01:31 Eos % (Auto) 0.6 % (0.0-4.3) 07/07/18 01:31 Baso % (Auto) 0.3 % (0.0-1.8) 07/07/18 01:31 Lymph # 1.3 K/mm3 (1.2-5.4) 07/07/18 01:31 [place] # 0.5 K/mm3 (0.0-0.8) 07/07/18 01:31 Eos # 0.0 K/mm3 (0.0-0.4) 07/07/18 01:31 Baso # 0.0 K/mm3 (0.0-0.1) 07/07/18 01:31 Seg Neutrophils % 70.2 % (40.0-70.0) H 07/07/18 01:31 Seg Neutrophils # 4.5 K/mm3 (1.8-7.7) 07/07/18 01:31 Sodium 144 mmol/L (137-145) 07/07/18 01:31 Potassium 3.2 mmol/L (3.6-5.0) L 07/07/18 01:31 Chloride 104.0 mmol/L (98-107) 07/07/18 01:31 Carbon Dioxide 25 mmol/L (22-30) 07/07/18 01:31 Anion Gap 18 mmol/L 07/07/18 01:31 BUN 14 mg/dL (9-20) 07/07/18 01:31 Creatinine 1.3 mg/dL (0.8-1.5) 07/07/18 01:31 Estimated GFR > 60 ml/min 07/07/18 01:31 BUN/Creatinine Ratio 11 % 07/07/18 01:31 Glucose 109 mg/dL (75-100) H 07/07/18 01:31 Calcium 8.7 mg/dL (8.4-10.2) 07/07/18 01:31 Total Creatine Kinase 121 units/L (55-170) 07/07/18 05:59 CK-MB (CK-2) 2.8 ng/mL (0.0-4.0) 07/07/18 05:59 CK-MB (CK-2) Rel Index 2.3 (0-4) 07/07/18 05:59 Troponin T 0.057 ng/mL (0.00-0.029) H 07/07/18 05:59 NT-Pro-B Natriuret Pep 86485 pg/mL (0-900) H 07/07/18 01:31 Triglycerides 71 mg/dL (2-149) 07/07/18 01:31 Cholesterol 175 mg/dL (50-199) 07/07/18 01:31 LDL Cholesterol Direct 144 mg/dL (50-130) H 07/07/18 01:31 HDL Cholesterol 41 mg/dL (40-59) 07/07/18 01:31 Cholesterol/HDL Ratio 4.26 % 07/07/18 01:31
[2018-07-07] MEDS ORDERED: LASIX IV SCH (10:00)
[2018-07-07] MEDS ORDERED: LASIX PO SCH (10:00)
--- NOTE | 2018-07-07 11:03 | Consultation ---
<ABIMAEL BLANKENSHIP - Last Filed: 07/07/18 12:46> History of Present Illness Consult date: 07/07/18 Requesting physician: DOUGLAS PLUMMER Consult reason: congestive heart failure History of present illness: The pt is a 67 YO male with a past medical history of HFpEF, HTN, normal coronaries per cath 03/2012, noncompliance, ? dementia. He has been seen in our office in the past by Dr. VI Webb (last seen 03/2016). He presented with c/o SOB for several days prior to arrival. He reports that he ran out of his medications 3 weeks ago. BP on arrival 221/128. He was initiated on cardene gtt. Echo 08/2015: severe LVH, EF 50-55%, impaired relaxation, mild-mod AR, mod MR, mod TR Past History Past Medical History: heart failure, hypertension Medications and Allergies Allergies Allergy/AdvReac Type Severity Reaction Status Date / Time No Known Allergies Allergy Unverified 08/22/15 08:53 Home Medications Medication Instructions Recorded Confirmed Last Taken Type Losartan [Cozaar] 100 mg PO QDAY #60 tablet 08/24/15 Unknown Rx hydrALAZINE [Apresoline TAB] 100 mg PO BID #240 tablet 08/24/15 Unknown Rx Carvedilol [Coreg] 25 mg PO BID #60 tablet 09/23/16 Unknown Rx Furosemide [Lasix TAB] 40 mg PO QDAY #30 tablet 09/23/16 Unknown Rx ISOSORBIDE MONOnitrate [Imdur ER] 30 mg PO QDAY #30 tablet 09/23/16 Unknown Rx amLODIPine [Norvasc] 5 mg PO QDAY #30 tablet 09/23/16 Unknown Rx Active Meds: Active Medications Acetaminophen (Tylenol) 650 mg PO Q4H PRN PRN Reason: Headache Albuterol (Proventil) 2.5 mg IH Q6H PRN PRN Reason: Shortness Of Breath Amlodipine Besylate (Norvasc) 5 mg PO QDAY [facility] Carvedilol (Coreg) 25 mg PO BID [facility] Furosemide (Lasix) 40 mg IV QDAY [facility] Heparin Sodium (Porcine) (Heparin) 5,000 unit SUB-Q Q12HR [facility] Hydralazine HCl (Apresoline) 100 mg PO BID [facility] Nicardipine HCl 50 mg/ Sodium (Chloride) 250 mls @ 25 mls/hr IV TITR [facility]; Protocol Last Titration: 07/07/18 06:27 Dose: 0 mg/hr, 0 mls/hr Documented by: Isosorbide Mononitrate (Imdur) 30 mg PO QDAY [facility] Losartan Potassium (Cozaar) 100 mg PO QDAY [facility] Nitroglycerin (Nitro-Bid 2%) 0.5 inch TP QIDNTG [facility]; Protocol Last Admin: 07/07/18 06:27 Dose: Not Given Documented by: Ondansetron HCl (Zofran) 4 mg IV Q8H PRN PRN Reason: Nausea And Vomiting Review of Systems Constitutional: no fever, no chills, no sweats Ears, nose, mouth and throat: no ear pain, no nose pain, no sinus pressure, no sinus pain Cardiovascular: shortness of breath, dyspnea on exertion, high blood pressure, no chest pain, no orthopnea, no palpitations, no rapid/irregular heart beat, no edema, no syncope, no lightheadedness Respiratory: shortness of breath, dyspnea on exertion, no cough, no congestion, no wheezing, no pain on inspiration Gastrointestinal: no abdominal pain, no nausea, no vomiting, no diarrhea, no constipation, no change in bowel habits Genitourinary Male: no dysuria, no hematuria, no flank pain, no discharge, no urinary frequency, no urinary hesitancy Musculoskeletal: no neck stiffness, no neck pain, no shooting arm pain, no arm numbness/tingling, no low back pain, no shooting leg pain Integumentary: no rash, no pruritis, no redness, no sores, no wounds Neurological: no head injury, no paralysis, no weakness, no parathesias, no n umbness, no tingling, no seizures, no syncope Psychiatric: no anxiety Endocrine: no cold intolerance, no heat intolerance Hematologic/Lymphatic: no easy bruising, no easy bleeding Allergic/Immunologic: no urticaria, no wheezing Physical Examination Vital Signs Temp Pulse Resp BP Pulse Ox 98.5 F 124 H 26 H 221/128 97 07/07/18 01:09 07/07/18 01:09 07/07/18 01:09 07/07/18 01:09 07/07/18 01:09 General appearance: no acute distress HEENT: Positive: PERRL, Normocephaly, Mucus Membranes Moist Neck: Positive: neck supple, trachea midline Cardiac: Positive: Reg Rate and Rhythm, S1/S2 Lungs: Positive: clear to auscultation Neuro: Positive: Grossly Intact Abdomen: Positive: Soft. Negative: Tender Skin: Negative: Rash, Wound Musculoskeletal: No Pain Extremities: Absent: edema Results 07/07/18 01:31 07/07/18 01:31 Cardiac Enzymes 07/07/18 Range/Units 05:59 CK-MB (CK-2) 2.8 (0.0-4.0) ng/mL Lipids 07/07/18 Range/Units 01:31 Triglycerides 71 (2-149) mg/dL Cholesterol 175 (50-199) mg/dL HDL Cholesterol 41 (40-59) mg/dL Cholesterol/HDL Ratio 4.26 % CBC 07/07/18 Range/Units 01:31 WBC 6.4 (4.5-11.0) K/mm3 RBC 4.48 (3.65-5.03) M/mm3 Hgb 13.7 (11.8-15.2) gm/dl Hct 40.6 (35.5-45.6) % Plt Count 150 (140-440) K/mm3 Lymph # 1.3 (1.2-5.4) K/mm3 Gilliam # 0.5 (0.0-0.8) K/mm3 Eos # 0.0 (0.0-0.4) K/mm3 Baso # 0.0 (0.0-0.1) K/mm3 Comprehensive Metabolic Panel 07/07/18 Range/Units 01:31 Sodium 144 (137-145) mmol/L Potassium 3.2 L (3.6-5.0) mmol/L Chloride 104.0 (98-107) mmol/L Carbon Dioxide 25 (22-30) mmol/L BUN 14 (9-20) mg/dL Creatinine 1.3 (0.8-1.5) mg/dL Glucose 109 H (75-100) mg/dL Calcium 8.7 (8.4-10.2) mg/dL - Imaging and Cardiology Echo: report reviewed ( 08/2015: severe LVH, EF 50-55%, impaired relaxation, mild-mod AR, mod MR, mod TR) Cardiac cath: report reviewed (normal coronaries per cath 03/2012) EKG: report reviewed, image reviewed EKG interpretations - Telemetry EKG Rhythm: Sinus Rhythm - EKG Sinus rhythms and dysrhythmias: sinus rhythm Assessment and Plan Agree with present cardiac regimen. Minimal troponin elevation currently nonspecific. Cont to trend and repeat ECG in AM. The patient has been seen in conjunction with Dr. Brian who agrees with the ass essment and plan of care. - Patient Problems (1) Acute heart failure with preserved ejection fraction Current Visit: Yes Status: Acute (2) Uncontrolled hypertension Current Visit: Yes Status: Acute (3) Noncompliance Current Visit: Yes Status: Chronic (4) Elevated troponin Current Visit: Yes Status: Acute (5) Hypokalemia Current Visit: Yes Status: Acute <NEHAL BRIAN - Last Filed: 07/07/18 17:29> Medications and Allergies Active Meds: Active Medications Acetaminophen (Tylenol) 650 mg PO Q4H PRN PRN Reason: Headache Albuterol (Proventil) 2.5 mg IH Q6H PRN PRN Reason: Shortness Of Breath Amlodipine Besylate (Norvasc) 5 mg PO QDAY [facility] Last Admin: 07/07/18 13:11 Dose: 5 mg Documented by: Carvedilol (Coreg) 25 mg PO BID [facility] Last Admin: 07/07/18 13:12 Dose: 25 mg Documented by: Furosemide (Lasix) 40 mg IV QDAY [facility] Last Admin: 07/07/18 13:13 Dose: 40 mg Documented by: Heparin Sodium (Porcine) (Heparin) 5,000 unit SUB-Q Q12HR [facility] Last Admin: 07/07/18 13:13 Dose: 5,000 unit Documented by: Hydralazine HCl (Apresoline) 100 mg PO BID [facility] Last Admin: 07/07/18 13:12 Dose: 100 mg Documented by: Isosorbide Mononitrate (Imdur) 30 mg PO QDAY [facility] Last Admin: 07/07/18 13:11 Dose: 30 mg Documented by: Losartan Potassium (Cozaar) 100 mg PO QDAY [facility] Last Admin: 07/07/18 13:13 Dose: 100 mg Documented by: Nitroglycerin (Nitro-Bid 2%) 0.5 inch TP QIDNTG [facility]; Protocol Last Admin: 07/07/18 13:13 Dose: 0.5 inch Documented by: Ondansetron HCl (Zofran) 4 mg IV Q8H PRN PRN Reason: Nausea And Vomiting Physical Examination Vital Signs Temp Pulse Resp BP Pulse Ox 98.5 F 124 H 26 H 221/128 97 07/07/18 01:09 07/07/18 01:09 07/07/18 01:09 07/07/18 01:09 07/07/18 01:09 Cardiac: Positive: Systolic Murmur, Diastolic Murmur Results 07/07/18 01:31 07/07/18 01:31 Cardiac Enzymes 07/07/18 07/07/18 Range/Units 05:59 12:57 CK-MB (CK-2) 2.8 2.8 (0.0-4.0) ng/mL Lipids 07/07/18 Range/Units 01:31 Triglycerides 71 (2-149) mg/dL Cholesterol 175 (50-199) mg/dL HDL Cholesterol 41 (40-59) mg/dL Cholesterol/HDL Ratio 4.26 % CBC 07/07/18 Range/Units 01:31 WBC 6.4 (4.5-11.0) K/mm3 RBC 4.48 (3.65-5.03) M/mm3 Hgb 13.7 (11.8-15.2) gm/dl Hct 40.6 (35.5-45.6) % Plt Count 150 (140-440) K/mm3 Lymph # 1.3 (1.2-5.4) K/mm3 Gilliam # 0.5 (0.0-0.8) K/mm3 Eos # 0.0 (0.0-0.4) K/mm3 Baso # 0.0 (0.0-0.1) K/mm3 Comprehensive Metabolic Panel 07/07/18 Range/Units 01:31 Sodium 144 (137-145) mmol/L Potassium 3.2 L (3.6-5.0) mmol/L Chloride 104.0 (98-107) mmol/L Carbon Dioxide 25 (22-30) mmol/L BUN 14 (9-20) mg/dL Creatinine 1.3 (0.8-1.5) mg/dL Glucose 109 H (75-100) mg/dL Calcium 8.7 (8.4-10.2) mg/dL
[2018-07-07] MEDS: IMDUR PO SCH (13:11)
[2018-07-07] MEDS: NORVASC PO SCH (13:11)
[2018-07-07] MEDS: APRESOLINE PO SCH ×2 (13:12→21:51)
[2018-07-07] MEDS: COREG PO SCH (13:12)
[2018-07-07] MEDS: HEPARIN SUB-Q SCH ×2 (13:13→21:50)
[2018-07-07] MEDS: COZAAR PO SCH (13:13)
[2018-07-07 13:58] LABS: Creatine Kinase MB 2.8 ng/mL (0.0-4.0)
--- NOTE | 2018-07-07 19:32 | Consultation ---
History of Present Illness Consult date: 07/07/18 Reason for consult: dyspnea, cough History of present illness: PULMONARY AND CRITICAL CARE CONSULTATION. DR. PLUMMER THANK YOU FOR ASKING US TO PARTICIPATE IN THE CARE OF THIS PATIENT. Patient is a 67 year old male with hx of HTN, Diastolic CHF, Medication Noncompliance, presents to ED for evaluation. Per patient he has been having dry cough with shortness of breath for a few days. Pt states that he has not taken his medication in several days. Pt denies fever, chills, CP, Palpitations, NVD, productive cough, Hemoptysis, recent ill contacts. He does not recall the last time he saw his doctors. He states compliance with his diet but not with daily weight. 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 Patient and has two children. Patient presently resting on room air. No acute respiratory distress.O2 saturation 96%. Past History Past Medical History: heart failure, hypertension Medications and Allergies Allergies Allergy/AdvReac Type Severity Reaction Status Date / Time No Known Allergies Allergy Unverified 08/22/15 08:53 Home Medications Medication Instructions Recorded Confirmed Last Taken Type Losartan [Cozaar] 100 mg PO QDAY #60 tablet 08/24/15 07/07/18 Unknown Rx hydrALAZINE [Apresoline TAB] 100 mg PO BID #240 tablet 08/24/15 07/07/18 Unknown Rx Carvedilol [Coreg] 25 mg PO BID #60 tablet 09/23/16 07/07/18 Unknown Rx Furosemide [Lasix TAB] 40 mg PO QDAY #30 tablet 09/23/16 07/07/18 Unknown Rx ISOSORBIDE MONOnitrate [Imdur ER] 30 mg PO QDAY #30 tablet 09/23/16 07/07/18 Unknown Rx amLODIPine [Norvasc] 5 mg PO QDAY #30 tablet 09/23/16 07/07/18 Unknown Rx Active Meds: Active Medications Acetaminophen (Tylenol) 650 mg PO Q4H PRN PRN Reason: Headache Albuterol (Proventil) 2.5 mg IH Q6H PRN PRN Reason: Shortness Of Breath Amlodipine Besylate (Norvasc) 5 mg PO QDAY [facility] Last Admin: 07/07/18 13:11 Dose: 5 mg Documented by: Carvedilol (Coreg) 25 mg PO BID [facility] Last Admin: 07/07/18 13:12 Dose: 25 mg Documented by: Furosemide (Lasix) 40 mg IV QDAY [facility] Last Admin: 07/07/18 13:13 Dose: 40 mg Documented by: Heparin Sodium (Porcine) (Heparin) 5,000 unit SUB-Q Q12HR [facility] Last Admin: 07/07/18 13:13 Dose: 5,000 unit Documented by: Hydralazine HCl (Apresoline) 100 mg PO BID [facility] Last Admin: 07/07/18 13:12 Dose: 100 mg Documented by: Isosorbide Mononitrate (Imdur) 30 mg PO QDAY [facility] Last Admin: 07/07/18 13:11 Dose: 30 mg Documented by: Losartan Potassium (Cozaar) 100 mg PO QDAY [facility] Last Admin: 07/07/18 13:13 Dose: 100 mg Documented by: Nitroglycerin (Nitro-Bid 2%) 0.5 inch TP QIDNTG [facility]; Protocol Last Admin: 07/07/18 19:01 Dose: Not Given Documented by: Ondansetron HCl (Zofran) 4 mg IV Q8H PRN PRN Reason: Nausea And Vomiting Review of Systems All systems: negative Physical Examination Vital signs: Vital Signs Temp Pulse Resp BP Pulse Ox 98.5 F 124 H 26 H 221/128 97 07/07/18 01:09 07/07/18 01:09 07/07/18 01:09 07/07/18 01:09 07/07/18 01:09 General appearance: no acute distress, alert Eyes: non-icteric ENT: oropharynx moist Neck: supple, no JVD Ascultation: Bilateral: rales Cardiovascular: regular rate and rhythm Gastrointestinal: normoactive bowel sounds, soft, non-tender Integumentary: normal Extremities: no cyanosis, no edema Musculoskeletal: no deformities Gait: normal gait normal mental status, non-focal exam, pupils equal and round, CN II-XII normal mood appropriate Results - Laboratory Findings CBC and BMP: 07/07/18 01:31 07/07/18 01:31 Abnormal lab findings: Abnormal Labs 07/07/18 07/07/18 07/07/18 01:31 01:31 01:31 [place] % (Auto) 8.3 H Seg Neutrophils % 70.2 H Potassium 3.2 L Glucose 109 H Troponin T 0.063 H NT-Pro-B Natriuret Pep LDL Cholesterol Direct 144 H 07/07/18 07/07/18 07/07/18 01:31 05:59 12:57 [place] % (Auto) Seg Neutrophils % Potassium Glucose Troponin T 0.057 H 0.046 H NT-Pro-B Natriuret Pep 24342 H LDL Cholesterol Direct - Diagnostic Findings Chest x-ray: report reviewed (Cardiomegaly, No acute respiratory process.), image reviewed Additional studies: Angio CT of chest done on 07/07/18 No evidence of pulmonary embolus, or aortic dissection. Currently. Mild generalized interstitial prominence in the chest. Mild congestive heart failure cannot be excluded. No localized infiltrates or effusions. Assessment and Plan Patient is a 67 year old male with hx of HTN, Diastolic CHF, Medication Noncompliance, presents to ED for evaluation. Per patient he has been having dry cough with shortness of breath for a few days. Pt states that he has not taken his medication in several days. Pt denies fever, chills, CP, Palpitations, NVD, productive cough, Hemoptysis, recent ill contacts. He does not recall the last time he saw his doctors. He states compliance with his diet but not with daily weight. 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 Patient and has two children. Patient presently resting on room air. No acute respiratory distress.O2 saturation 96%. - Patient Problems (1) Acute exacerbation of CHF (congestive heart failure) Current Visit: Yes Status: Acute Plan to address problem: Shortness of breath most likely from CHF. Management as per cardiology. Continue S/C Heparin. ABGs on room air. (2) Uncontrolled hypertension Current Visit: Yes Status: Acute Plan to address problem: Management as per primary care.
[2018-07-08] MEDS: COREG PO SCH ×2 (01:07→10:56)
--- NOTE | 2018-07-08 08:15 | Discharge Summary ---
Providers - Providers Date of Admission: 07/07/18 06:17 Attending physician: DOUGLAS PLUMMER MD 07/07/18 05:13 Consult to Physician [CONS] Routine Comment: Consulting Provider: EVELIN POPE Physician Instructions: Reason For Exam: HYPERTENSIVE CRISIS ON MERRY DRIP 07/07/18 05:14 Consult to Physician [CONS] Routine Comment: DARIAN NOTIFIED 09 Consulting Provider: [facility] Physician Instructions: Reason For Exam: CHF EXACERBATION WITH ELEVATED TROPONIN 07/07/18 08:14 Consult to Physician [CONS] Routine Comment: FRAN BLANKENSHIP AWARE 09 Consulting Provider: ALEXANDRA ORTIZ Physician Instructions: Reason For Exam: CHF Primary care physician: OTTO BLEDSOE Hospitalization Reason for admission: = Congestive Heart Failure = Condition: Stable Hospital course: Patient is a 67 year old male with hx of HTN, Diastolic CHF, Medication Noncompliance, presents to ED for evaluation. Per patient he has been having dry cough with shortness of breath for a few days. Pt states that he has not taken his medication in several days. Pt denies fever, chills, CP, Palpitations, NVD, productive cough, Hemoptysis, recent ill contacts. He does not recall the last time he saw his doctors. He states compliance with his diet but not with daily weight. In the ED: CTA- Negative for PE CXR - Cardiomegaly, Negative for any acute disease Patient was started on cardene drip with improvement in BP now weaned off and placed on oral meds During the hospital stay the patient's blood pressure resolved. We did have extensive conversation, compliance and also based on the daughters report that the patient gets short of breath when he goes outside I did recommend a pulmonary evaluation outpatient. Patient verbalized understanding also discussed with the daughter strategies to a shell of the patient's medications do not run out. I also recommended an outpatient dementia screening. Condition at this time stable. (1) Hypertensive Urgency- Now resolved (2) Hypertension (3) Acute on chronic diastolic heart failure: EF 08/22/15- 50-55% WITH Abnormal left ventricular diastolic filling (4) Hypokalemia (5) Noncompliance (6) Chronic elevated troponin (7) EX-smoker (8) COPD with seasonal exacerbation. (9) Valvular abnormalities mild-mod AR, mod MR, mod TR Disposition: DC-01 TO HOME OR SELFCARE Time spent for discharge: 35 mins Core Measure Documentation - Palliative Care Palliative Care/ Comfort Measures: Not Applicable - Core Measures Any of the following diagnoses?: heart failure, none - VTE Discharge Requirements Deep Vein Thrombosis/Pulmonary Embolism Present on Admission: No - Heart Failure Discharge Requirements MELODY/ARB for LVSD if EF <40%: Not Applicable Beta eva at discharge: No Reason for no beta eva on DC: COPD Exam - Physical Exam Narrative exam: Narrative exam: VITAL SIGNS: Reviewed. GENERAL: The patient appeared well nourished and normally developed. Vital signs as documented. HEAD: No signs of head trauma. EYES: Pupils are equal. Extraocular motions intact. EARS: Hearing grossly intact. MOUTH: Oropharynx is normal. NECK: No adenopathy, no JVD. CHEST: Chest with clear breath sounds bilaterally. No wheeze, rales or rhonchi. CARDIAC: Regular rate and rhythm. S1 and S2, without murmurs, gallops, or rubs. VASCULAR: No Edema. Peripheral pulses normal and equal in all extremities. ABDOMEN: Soft, without detectable tenderness. No sign of distention. No rebound or guarding, and no masses palpated. Bowel Sounds normal. MUSCULOSKELETAL: Good range of motion of all major joints. Extremities without clubbing, cyanosis or edema. NEUROLOGIC EXAM: Alert and oriented x 3. No focal sensory or strength deficits. Speech normal. Follows commands. Although appears to have some forgetfullness. PSYCHIATRIC: Mood normal. SKIN: No rash or lesions. - Constitutional Vitals: Temp Pulse Resp BP Pulse Ox 98.0 F 82 20 125/79 97 07/08/18 03:20 07/08/18 03:20 07/08/18 03:20 07/08/18 03:20 07/08/18 03:20 Plan Activity: advance as tolerated, fall precautions Diet: low fat Special Instructions: record daily weights, record daily BP diary Follow up with: OTTO BLEDSOE MD [Primary Care Provider] - 3-5 Days NICOLASA BARKLEY MD [Staff Physician] - 7 Days ALEXANDRA ORTIZ MD [Staff Physician] - 7 Days Prescriptions: hydrALAZINE [Apresoline TAB] 100 mg PO BID #240 tablet Carvedilol [Coreg] 25 mg PO BID #60 tablet Losartan [Cozaar] 100 mg PO QDAY #60 tablet ISOSORBIDE MONOnitrate [Imdur ER] 30 mg PO QDAY #30 tablet Furosemide [Lasix TAB] 40 mg PO QDAY #30 tablet amLODIPine [Norvasc] 5 mg PO QDAY #30 tablet ALBUTEROL Inhaler(NF) [VENTOLIN Inhaler(NF)] 1 puff IH QID PRN 30 Days inha PRN Reason: Shortness Of Breath
[2018-07-08 08:52] LABS: Calcium 8.5 mg/dL (8.4-10.2)
[2018-07-08] MEDS ORDERED: LASIX PO SCH (10:00)
[2018-07-08] MEDS ORDERED: K-DUR PO ONE (10:00)
--- NOTE | 2018-07-08 10:39 | Progress Note ---
Assessment and Plan Currently stable cardiac status. BPs improved. Pt may discharge home from cardiology standpoint on current cardiac regimen. Recommend follow up in our office with Dr. VI Webb within 3-5 days of hospital discharge ([phone]). The patient has been seen in conjunction with Dr. Smith who agrees with the assessment and plan of care. - Patient Problems (1) Acute heart failure with preserved ejection fraction Current Visit: Yes Status: Acute (2) Uncontrolled hypertension Current Visit: Yes Status: Acute (3) Noncompliance Current Visit: Yes Status: Chronic (4) Elevated troponin Current Visit: Yes Status: Acute (5) Hypokalemia Current Visit: Yes Status: Acute Subjective Date of service: 07/08/18 Principal diagnosis: HF; HTN Interval history: Pt resting in bed, states he is feeling better, BPs improved. Objective Last Vital Signs Temp 98.6 F 07/08/18 08:33 Pulse 88 07/08/18 08:33 Resp 20 07/08/18 08:33 BP 147/80 07/08/18 08:33 Pulse Ox 93 07/08/18 08:33 - Physical Examination General: No Apparent Distress HEENT: Positive: PERRL, Normocephaly, Mucus Membranes Moist Neck: Positive: neck supple, trachea midline Cardiac: Positive: Reg Rate and Rhythm, S1/S2 Lungs: Positive: clear to auscultation Neuro: Positive: Grossly Intact Abdomen: Positive: Soft. Negative: Tender Skin: Negative: Rash, Wound Musculoskeletal: No Pain Extremities: Absent: edema - Labs and Meds Cardiac Enzymes 07/07/18 Range/Units 12:57 CK-MB (CK-2) 2.8 (0.0-4.0) ng/mL Comprehensive Metabolic Panel 07/08/18 Range/Units 05:10 Sodium 140 (137-145) mmol/L Potassium 3.1 L (3.6-5.0) mmol/L Chloride 98.7 (98-107) mmol/L Carbon Dioxide 25 (22-30) mmol/L BUN 26 H (9-20) mg/dL Creatinine 1.5 (0.8-1.5) mg/dL Glucose 110 H (75-100) mg/dL Calcium 8.5 (8.4-10.2) mg/dL - Imaging and Cardiology EKG: report reviewed, image reviewed Echo: report reviewed ( 08/2015: severe LVH, EF 50-55%, impaired relaxation, mild-mod AR, mod MR, mod TR) Cardiac cath: report reviewed (normal coronaries per cath 03/2012) - Telemetry EKG Rhythm: Sinus Rhythm - EKG Sinus rhythms and dysrhythmias: sinus rhythm
[2018-07-08] MEDS: NITRO-BID 2% TP SCH ×3 (10:55→14:56)
[2018-07-08] MEDS: APRESOLINE PO SCH (10:56)
[2018-07-08] MEDS: COZAAR PO SCH (10:57)
[2018-07-08] MEDS: IMDUR PO SCH (10:58)
[2018-07-08] MEDS: NORVASC PO SCH (11:02)
[2018-07-08] MEDS: HEPARIN SUB-Q SCH (11:02)
--- NOTE | 2018-07-08 13:05 | Progress Note ---
Assessment and Plan . Patient resting on room air. O2 saturation 98% on room air. No complaint of chest pain, shortness of breath or cough. ABGs on room air done to day POC ABG pH 7.429 (7.35-7.45) 07/08/18 09:19 POC ABG pCO2 39.4 (35-45) 07/08/18 09:19 POC ABG pO2 88 (80-105) 07/08/18 09:19 POC ABG HCO3 26.1 07/08/18 09:19 POC ABG Total CO2 27 07/08/18 09:19 POC ABG O2 Sat 97 07/08/18 09:19 - Patient Problems (1) Acute exacerbation of CHF (congestive heart failure) Current Visit: Yes Status: Acute Plan to address problem: Shortness of breath most likely from CHF. Management as per cardiology. Continue S/C Heparin. (2) Uncontrolled hypertension Current Visit: Yes Status: Acute Plan to address problem: Management as per primary care. Subjective Date of service: 07/08/18 Principal diagnosis: HF; HTN Interval history: Patient resting on room air. O2 saturation 98% on room air. No complaint of [place] [facility] pain, shortness of breath or cough. ABGs on room air done to day POC ABG pH 7.429 (7.35-7.45) 07/08/18 09:19 POC ABG pCO2 39.4 (35-45) 07/08/18 09:19 POC ABG pO2 88 (80-105) 07/08/18 09:19 POC ABG HCO3 26.1 07/08/18 09:19 POC ABG Total CO2 27 07/08/18 09:19 POC ABG O2 Sat 97 07/08/18 09:19 Objective Vital Signs - 12hr 07/08/18 07/08/18 07/08/18 01:07 03:20 08:33 Temperature 98.0 F 98.6 F Pulse Rate 86 82 88 Respiratory 20 20 Rate Blood Pressure 128/71 125/79 147/80 O2 Sat by Pulse 97 93 Oximetry 07/08/18 07/08/18 07/08/18 10:00 10:55 10:56 Temperature Pulse Rate 88 88 Respiratory Rate Blood Pressure 147/80 147/80 O2 Sat by Pulse 93 Oximetry 07/08/18 07/08/18 07/08/18 10:57 10:58 11:02 Temperature Pulse Rate 88 88 86 Respiratory Rate Blood Pressure 147/80 147/80 170/120 O2 Sat by Pulse Oximetry 07/08/18 07/08/18 11:07 11:19 Temperature 98.2 F Pulse Rate 87 Respiratory 18 Rate Blood Pressure 129/77 137/72 O2 Sat by Pulse 97 Oximetry Constitutional: no acute distress, alert Eyes: non-icteric ENT: oropharynx moist Neck: supple, no JVD Ascultation: Bilateral: rales Cardiovascular: regular rate and rhythm Gastrointestinal: normoactive bowel sounds, soft, non-tender Integumentary: normal Extremities: no cyanosis, no edema Neurologic: normal mental status, non-focal exam, pupils equal and round, CN II- XII normal Psychiatric: mood appropriate CBC and BMP: 07/07/18 01:31 07/08/18 05:10 ABG, PT/INR, D-dimer: ABG POC ABG pH 7.429 (7.35-7.45) 07/08/18 09:19 POC ABG pCO2 39.4 (35-45) 07/08/18 09:19 POC ABG pO2 88 (80-105) 07/08/18 09:19 POC ABG HCO3 26.1 07/08/18 09:19 POC ABG Total CO2 27 07/08/18 09:19 POC ABG O2 Sat 97 07/08/18 09:19 Abnormal lab findings: Abnormal Labs 07/07/18 07/07/18 07/07/18 01:31 01:31 01:31 Kidder % (Auto) 8.3 H Seg Neutrophils % 70.2 H Potassium 3.2 L BUN Glucose 109 H Troponin T 0.063 H NT-Pro-B Natriuret Pep LDL Cholesterol Direct 144 H 07/07/18 07/07/18 07/07/18 01:31 05:59 12:57 Kidder % (Auto) Seg Neutrophils % Potassium BUN Glucose Troponin T 0.057 H 0.046 H NT-Pro-B Natriuret Pep 63356 H LDL Cholesterol Direct 07/08/18 05:10 Kidder % (Auto) Seg Neutrophils % Potassium 3.1 L BUN 26 H Glucose 110 H Troponin T NT-Pro-B Natriuret Pep LDL Cholesterol Direct Additional Studies: Angio CT of chest done 07/07/18 IMPRESSION: No evidence of pulmonary embolus, or aortic dissection. Currently. Mild generalized interstitial prominence in the chest. Mild congestive heart failure cannot be excluded. No localized infiltrates or effusions..
[2018-07-08 16:11] VITALS: BP 110/60
== END 2018-07-08 16:45 | disposition home or self-care (01) | DRG 190 ==
LOC: ED 01:08 → CC1 06:17 → 4A 09:25
PROVIDERS: ADMIT Internal Medicine; ATTEND Internal Medicine
PROC: 4A033R1 Measurement of Arterial Saturation, Peripheral, Percutaneous Approach (ICD-10-PCS; principal; 2018-07-08)
DX: J44.1 Chronic obstructive pulmonary disease with (acute) exacerbation (principal); I50.33 Acute on chronic diastolic (congestive) heart failure; I16.1 Hypertensive emergency; I11.0 Hypertensive heart disease with heart failure; E87.6 Hypokalemia; I16.0 Hypertensive urgency; Z91.14 Patient's other noncompliance with medication regimen; Z87.891 Personal history of nicotine dependence; I08.3 Combined rheumatic disorders of mitral, aortic and tricuspid valves
CPT/HCPCS: 36415; 36600; 71045; 71275; 80048; 80061; 82550; 82553; 82803; 83880; 84484; 85025; 93005; 93010; 93306; 94644; G0378; J0360; J1644; J1940; J7050; Q9967

== ENCOUNTER 2020-09-24 03:43 | Inpatient (IN) | payer MEDICARE ==
[2020-09-24] MEDS ORDERED: ASPIRIN 325 MG TAB PO ONE (04:03)
--- NOTE | 2020-09-24 04:07 | Event Note ---
ED Screening Note Date of service: 09/24/20 Time: 04:05 ED Screening Note: Patient is a 69 yo AA male with a h/o HTN, CHF, Asthma and hyperlipidemia who presents to the ED with c/o acute onset persistent dyspnea on exertion for the last 1 week, worse in the last 2 days despite taking his usual regular medications. Patient denies chest pain, fever, chills, cough, dizziness, nauseas, vomiting or palpitations, abdominal pain. This initial assessment/diagnostic orders/clinical plan/treatment(s) is/are subject to change based on patients health status, clinical progression and re- assessment by fellow clinical providers in the ED. Further treatment and workup at subsequent clinical providers discretion. Patient/guardian urged not to elope from the ED as their condition may be serious if not clinically assessed and managed. Initial orders include: CBC, Troponin, CMP, EKG, CXR, BNP, Aspirin
[2020-09-24] MEDS ORDERED: IPRATROPIUM 0.02% NEBU 2.5 ML IH ONE (04:32)
[2020-09-24] MEDS ORDERED: ALBUTEROL 2.5 MG/3 ML NEBU IH ONE (04:32)
[2020-09-24 04:49] LABS: Basophils % (Auto) 0.4 % (0.0-1.8); Eosinophils % (Auto) 0.9 % (0.0-4.3); Hematocrit 39.4 % (35.5-45.6); Hemoglobin 13.4 gm/dl (11.8-15.2); Lymphocytes # (Auto) 1.6 K/mm3 (1.2-5.4); Lymphocytes % (Auto) 29.9 % (13.4-35.0); Mean Corpuscular HGB Conc 34 % (32-34); Mean Corpuscular Volume 93 fl (84-94); Monocytes # (Auto) 0.3 K/mm3 (0.0-0.8); Monocytes % (Auto) 6.6 % (0.0-7.3); Platelet Count 157 K/mm3 (140-440); Red Blood Count 4.23 M/mm3 (3.65-5.03); Red Cell Distribution Width 14.4 % (13.2-15.2)
[2020-09-24 04:59] LABS: INR 1.17 (0.87-1.13)
--- NOTE | 2020-09-24 04:59 | Emergency Department Report ---
HPI - General Chief Complaint: Dyspnea/Respdistress Time Seen by Provider: 09/24/20 04:31 - HPI HPI: This is a 69-year-old male who presents to the emergency department with complaint of a 1 to 2-week history of shortness of breath that worsens with exertion. He denies any chest pain, fever, cough, wheezing, lower extremity swelling, abdominal or back pains. He has a past medical history of hypertension and CHF. He has been using his albuterol inhaler and nebulizer at home without any relief. He is a former smoker. He denies any illicit drug use or any alcohol abuse. No recent travel or sick contacts at home. His primary care physician is a Dr. Lou, but he has not seen them regarding his symptoms. ED Past Medical Hx - Past Medical History Previous Medical History?: Yes Hx Hypertension: Yes Hx Congestive Heart Failure: Yes - Surgical History Past Surgical History?: No - Social History Smoking Status: Former Smoker - Medications Home Medications: Home Medications Medication Instructions Recorded Confirmed Last Taken Type ALBUTEROL NEB's [Proventil 0.083% 2.5 mg IH Q6HR PRN 09/24/20 09/24/20 Unknown History NEBS] AtorvaSTATin [Lipitor] 20 mg PO QDAY 09/24/20 09/24/20 Unknown History Clonidine HCl [Kapvay] 0.2 mg PO QDAY 09/24/20 09/24/20 Unknown History Furosemide [Lasix] 20 mg PO QDAY 09/24/20 09/24/20 Unknown History Losartan Potassium 100 mg PO QDAY 09/24/20 09/24/20 Unknown History NIFEdipine [Nifedipine ER] 90 mg PO QDAY 09/24/20 09/24/20 Unknown History carvediloL [Coreg] 25 mg PO BID 09/24/20 09/24/20 Unknown History ED Review of Systems ROS: Stated complaint: SHORTNESS OF BREATH Other details as noted in HPI Comment: All other systems reviewed and negative Constitutional: denies: chills, fever Eyes: denies: eye pain, vision change ENT: denies: ear pain, throat pain Respiratory: shortness of breath. denies: cough, wheezing Cardiovascular: denies: chest pain, edema Gastrointestinal: denies: abdominal pain, vomiting Genitourinary: denies: dysuria, discharge Musculoskeletal: denies: back pain, arthralgia Skin: denies: rash, lesions Neurological: denies: headache, weakness Physical Exam - Physical Exam Vital Signs: Vital Signs 09/24/20 09/24/20 03:54 04:40 Temperature 97.4 F L Pulse Rate 77 91 H Respiratory 22 20 Rate Blood Pressure 91/70 94/67 [Left] O2 Sat by Pulse 100 95 Oximetry Physical Exam: GENERAL: The patient is well-developed well-nourished. HENT: Normocephalic. Atraumatic. Patient has moist mucous membranes. EYES: Extraocular motions are intact. NECK: Supple. Trachea is midline. CHEST/LUNGS: Mildly coarse breath sounds. There is tachypnea but no accessory muscle use. HEART/CARDIOVASCULAR: Regular. There is no tachycardia. There is no murmur. ABDOMEN: Abdomen is soft, nontender. Patient has normal bowel sounds. There is no abdominal distention. SKIN: Skin is warm and dry. NEURO: The patient is awake, alert, and oriented. The patient is cooperative. The patient has no focal neurologic deficits. Normal speech. MUSCULOSKELETAL: There is no tenderness or deformity. There is no limitation range of motion. ED Course Vital Signs 09/24/20 09/24/20 03:54 04:40 Temperature 97.4 F L Pulse Rate 77 91 H Respiratory 22 20 Rate Blood Pressure 91/70 94/67 [Left] O2 Sat by Pulse 100 95 Oximetry ED Medical Decision Making - Lab Data Result diagrams: 09/24/20 04:19 09/24/20 04:19 Lab Results 09/24/20 09/24/20 09/24/20 Range/Units 04:19 04:19 04:19 WBC 5.2 (4.5-11.0) K/mm3 RBC 4.23 (3.65-5.03) M/mm3 Hgb 13.4 (11.8-15.2) gm/dl Hct 39.4 (35.5-45.6) % MCV 93 (84-94) fl MCH 32 (28-32) pg MCHC 34 (32-34) % RDW 14.4 (13.2-15.2) % Plt Count 157 (140-440) K/mm3 Lymph % (Auto) 29.9 (13.4-35.0) % [place] % (Auto) 6.6 (0.0-7.3) % Eos % (Auto) 0.9 (0.0-4.3) % Baso % (Auto) 0.4 (0.0-1.8) % Lymph # (Auto) 1.6 (1.2-5.4) K/mm3 [place] # (Auto) 0.3 (0.0-0.8) K/mm3 Eos # (Auto) 0.0 (0.0-0.4) K/mm3 Baso # (Auto) 0.0 (0.0-0.1) K/mm3 Seg Neutrophils % 62.2 (40.0-70.0) % Seg Neutrophils # 3.3 (1.8-7.7) K/mm3 PT (12.2-14.9) Sec. INR (0.87-1.13) Sodium 138 (137-145) mmol/L Potassium 4.1 (3.6-5.0) mmol/L Chloride 101.5 (98-107) mmol/L Carbon Dioxide 24 (22-30) mmol/L Anion Gap 17 mmol/L BUN 22 H (9-20) mg/dL Creatinine 2.0 H (0.8-1.3) mg/dL Estimated GFR 40 ml/min BUN/Creatinine Ratio 11 % Glucose 186 H (75-100) mg/dL Calcium 8.2 L (8.4-10.2) mg/dL Total Bilirubin 0.50 (0.1-1.2) mg/dL AST 68 H (5-40) units/L ALT 56 (7-56) units/L Alkaline Phosphatase 80 (35-129) units/L Troponin T 1.030 H* (0.00-0.029) ng/mL NT-Pro-B Natriuret Pep 24712 H (0-900) pg/mL Total Protein 6.3 (6.3-8.2) g/dL Albumin 4.0 (3.9-5) g/dL Albumin/Globulin Ratio 1.7 % 09/24/20 Range/Units 04:38 WBC (4.5-11.0) K/mm3 RBC (3.65-5.03) M/mm3 Hgb (11.8-15.2) gm/dl Hct (35.5-45.6) % MCV (84-94) fl MCH (28-32) pg MCHC (32-34) % RDW (13.2-15.2) % Plt Count (140-440) K/mm3 Lymph % (Auto) (13.4-35.0) % [place] % (Auto) (0.0-7.3) % Eos % (Auto) (0.0-4.3) % Baso % (Auto) (0.0-1.8) % Lymph # (Auto) (1.2-5.4) K/mm3 [place] # (Auto) (0.0-0.8) K/mm3 Eos # (Auto) (0.0-0.4) K/mm3 Baso # (Auto) (0.0-0.1) K/mm3 Seg Neutrophils % (40.0-70.0) % Seg Neutrophils # (1.8-7.7) K/mm3 PT 14.7 (12.2-14.9) Sec. INR 1.17 H (0.87-1.13) Sodium (137-145) mmol/L Potassium (3.6-5.0) mmol/L Chloride (98-107) mmol/L Carbon Dioxide (22-30) mmol/L Anion Gap mmol/L BUN (9-20) mg/dL Creatinine (0.8-1.3) mg/dL Estimated GFR ml/min BUN/Creatinine Ratio % Glucose (75-100) mg/dL Calcium (8.4-10.2) mg/dL Total Bilirubin (0.1-1.2) mg/dL AST (5-40) units/L ALT (7-56) units/L Alkaline Phosphatase (35-129) units/L Troponin T (0.00-0.029) ng/mL NT-Pro-B Natriuret Pep (0-900) pg/mL Total Protein (6.3-8.2) g/dL Albumin (3.9-5) g/dL Albumin/Globulin Ratio % - EKG Data -: EKG Interpreted by Me - EKG Data When compared to previous EKG there are: changes noted (Previous EKG from 2019 showed sinus tachycardia and current EKG is atrial fibrillation.) Interpretation: other (Atrial fibrillation with a rate of 83 bpm, normal axis, T wave inversions to the anterior lateral leads. No ST elevation OK.) - Radiology Data Radiology results: image reviewed interpreted by me: Chest x-ray does not show any acute process. There are no pleural effusions, obvious pneumonia and there is no pneumothorax. No significant cardiomegaly. No widened mediastinum. - Medical Decision Making This patient presented to the emergency department with a 1 to 2-week history of shortness of breath that worsens with exertion. He denies any chest pain. EKG shows new onset atrial fibrillation. Chest x-ray did not show any pneumonia, pleural effusions, pneumothorax, widened mediastinum, or any other acute process. The patient's labs shows renal insufficiency with a creatinine of 2 and a GFR of 40. The patient has a BNP of 11,000 and an elevated troponin of about 1. Patient's blood pressure was borderline low and therefore I did not initiate any diuresis. He was started on anticoagulation with heparin secondary to the new onset A. fib and his NSTEMI. Patient will be admitted to the hospital for further evaluation and treatment and was accepted for admission by the hospitalist, Dr. Hopper. Critical Care Time: Yes Critical care time in (mins) excluding proc time.: 35 Critical care attestation.: If time is entered above; I have spent that time in minutes in the direct care of this critically ill patient, excluding procedure time. Critical care time was spent on this patient in doing his initial evaluation, multiple reevaluations, ordering and interpretation of labs and imaging, anticoagulation for the new onset atrial fibrillation, DuoNeb breathing treatments, discussion with cardiology and the hospitalist services. Critical Care Time: 35 minutes. ED Disposition Clinical Impression: Acute renal insufficiency, NSTEMI (non-ST elevated myocardial infarction), New onset atrial fibrillation Acute exacerbation of CHF (congestive heart failure) Qualifiers: Heart failure type: unspecified Qualified Code(s): I50.9 - Heart failure, unspecified Disposition: OP ADMIT IP TO THIS HOSP Is pt being admited?: Yes Condition: Serious Time of Disposition: 05:48
--- NOTE | 2020-09-24 05:14 | XRay Report ---
CHEST 1 VIEW 0412 INDICATION / CLINICAL INFORMATION: BLAKE COMPARISON: None available. FINDINGS: SUPPORT DEVICES: None HEART / MEDIASTINUM: Mild cardiomegaly LUNGS / PLEURA: No significant pulmonary or pleural abnormality. No pneumothorax. ADDITIONAL FINDINGS: No significant additional findings. IMPRESSION: No significant acute abnormality Signer Name: Luis Michael MD Signed: 09/24/2020 5:09 AM Workstation Name: [id number]
[2020-09-24 05:19] LABS: Calcium 8.2 mg/dL (8.4-10.2)
[2020-09-24] MEDS ORDERED: SODIUM CHLORIDE 0.9% 500 ML 500 ML IV ONE (05:35)
[2020-09-24] MEDS ORDERED: HEPARIN 10,000 UNITS/10 ML VIAL IV PRN (05:41)
[2020-09-24] MEDS ORDERED: HEPARIN 10,000 UNITS/10 ML VIAL IV ONE (05:41)
[2020-09-24] MEDS ORDERED: ALBUTEROL 2.5 MG/3 ML NEBU IH PRN (05:53)
[2020-09-24] MEDS ORDERED: NITROGLYCERIN 0.4 MG TAB SUBL SL PRN (05:56)
[2020-09-24] MEDS: HEPARIN/ 0.45% NACL DRIP 25,000 UNIT/500 ML BAG IV SCH (06:05)
--- NOTE | 2020-09-24 06:13 | History and Physical Report ---
History of Present Illness Date of examination: 09/24/20 Date of admission: 09/24/2020 Chief complaint: SOB with exertion History of present illness: 69-year-old -Citizen Of The [place] male who is a former smoker with history of CHF and hypertension who presents [facility] ED with complaints of dyspnea x1 to 2 weeks. Patient states that he has dyspnea at rest which is worse with exertion for the past 1 to 2 weeks. He has been using his home rescue inhaler (albuterol) and nebulizer more frequently without any relief. He denies cough, fever, PND, orthopnea, bilateral lower extremity swelling, generalized weakness. Patient has a EF of 50 to 55% with severe LVH seen on echo done at outpatient facility ([facility] 08/2015). Patient states he does not follow-up with insole buffer on a regular basis. His primary care physician is Dr. Lou, which he follows on a regular basis. Patient is a and lives with his adult daughter. Denies recent tobacco use. Denies nausea, vomiting, diarrhea, chest pain, palpitations, headache, cough, hemoptysis, or recent sick contacts. Past History Past Medical History: heart failure, hypertension (cardiac cath 2011) Social history: , lives with family (daughter), full code. denies: smoking, alcohol abuse, prescription drug abuse, IV drug use Family history: hypertension Medications and Allergies Allergies Allergy/AdvReac Type Severity Reaction Status Date / Time No Known Allergies Allergy Unverified 08/22/15 08:53 Home Medications Medication Instructions Recorded Confirmed Last Taken Type ALBUTEROL NEB's [Proventil 0.083% 2.5 mg IH Q6HR PRN 09/24/20 09/24/20 Unknown History NEBS] AtorvaSTATin [Lipitor] 20 mg PO QHS 09/24/20 09/24/20 Unknown History Clonidine HCl [Kapvay] 0.2 mg PO QDAY 09/24/20 09/24/20 Unknown History Furosemide [Lasix] 20 mg PO QDAY 09/24/20 09/24/20 Unknown History Losartan Potassium 100 mg PO QDAY 09/24/20 09/24/20 Unknown History NIFEdipine [Nifedipine ER] 90 mg PO QDAY 09/24/20 09/24/20 Unknown History carvediloL [Coreg] 25 mg PO BID 09/24/20 09/24/20 Unknown History Active Meds: Active Medications Albuterol (Albuterol 2.5 Mg/3 Ml Nebu) 2.5 mg IH Q6HRT PRN PRN Reason: Dyspnea Atorvastatin Calcium (Atorvastatin 20 Mg Tab) 20 mg PO QHS JENNIFER Heparin Sodium (Porcine) (Heparin 10,000 Units/10 Ml Vial) 3,600 unit 40 unit/kg (3600 unit) IV Q6H PRN PRN Reason: Anti-Xa Assay < 0.1 units/ml Heparin Sodium/Sodium Chloride (Heparin/ 0.45% Nacl-25,000 Unit/500 Ml) 25,000 unit in 500 mls @ 27 mls/hr IV TITR JENNIFER; Protocol Nitroglycerin (Nitroglycerin 0.4 Mg Tab Subl) 0.4 mg SL .Q5MIN PRN PRN Reason: Chest Pain Review of Systems All systems: negative (As noted in HPI) Exam - Physical Exam Narrative exam: Physical exam General appearance: Present: No acute distress, alert and oriented 3, pleasant, well-nourished, older adult male - EENT Eyes: Present: PERRL, EOM intact ENT: hearing intact, no dentition - Neck Neck: Present: supple, normal ROM - Respiratory Respiratory effort: Non-labored Respiratory: Diminished bases - Cardiovascular Heart rate: 88 (bpm) Rhythm: A. fib Heart Sounds: Present: S1 & S2. Absent: rub, click - Extremities Extremities: no ischemia, pulses intact, - Peripheral Assessment Peripheral Pulses: within normal limits - Abdominal General gastrointestinal: soft, non-tender, normal bowel sounds - Integumentary Integumentary: Present: warm, dry - Musculoskeletal Musculoskeletal: Able to move all extremities -Neurological Neurological: CN II-XII intact - Psychiatric Psychiatric: Appropriate for situation ,cooperative - Constitutional Vitals: Temp Pulse Resp BP Pulse Ox 97.4 F L 86 16 92/71 100 09/24/20 03:54 09/24/20 05:46 09/24/20 05:46 09/24/20 05:46 09/24/20 05:46 HEART Score - HEART Score Troponin: Troponin T 1.030 ng/mL (0.00-0.029) H* 09/24/20 04:19 Results - Labs CBC & Chem 7: 09/24/20 04:19 09/24/20 04:19 Labs: Laboratory Last Values WBC 5.2 K/mm3 (4.5-11.0) 09/24/20 04:19 RBC 4.23 M/mm3 (3.65-5.03) 09/24/20 04:19 Hgb 13.4 gm/dl (11.8-15.2) 09/24/20 04:19 Hct 39.4 % (35.5-45.6) 09/24/20 04:19 MCV 93 fl (84-94) 09/24/20 04:19 MCH 32 pg (28-32) 09/24/20 04:19 MCHC 34 % (32-34) 09/24/20 04:19 RDW 14.4 % (13.2-15.2) 09/24/20 04:19 Plt Count 157 K/mm3 (140-440) 09/24/20 04:19 Lymph % (Auto) 29.9 % (13.4-35.0) 09/24/20 04:19 [place] % (Auto) 6.6 % (0.0-7.3) 09/24/20 04:19 Eos % (Auto) 0.9 % (0.0-4.3) 09/24/20 04:19 Baso % (Auto) 0.4 % (0.0-1.8) 09/24/20 04:19 Lymph # (Auto) 1.6 K/mm3 (1.2-5.4) 09/24/20 04:19 Yell # (Auto) 0.3 K/mm3 (0.0-0.8) 09/24/20 04:19 Eos # (Auto) 0.0 K/mm3 (0.0-0.4) 09/24/20 04:19 Baso # (Auto) 0.0 K/mm3 (0.0-0.1) 09/24/20 04:19 Seg Neutrophils % 62.2 % (40.0-70.0) 09/24/20 04:19 Seg Neutrophils # 3.3 K/mm3 (1.8-7.7) 09/24/20 04:19 PT 14.7 Sec. (12.2-14.9) 09/24/20 04:38 INR 1.17 (0.87-1.13) H 09/24/20 04:38 Sodium 138 mmol/L (137-145) 09/24/20 04:19 Potassium 4.1 mmol/L (3.6-5.0) 09/24/20 04:19 Chloride 101.5 mmol/L (98-107) 09/24/20 04:19 Carbon Dioxide 24 mmol/L (22-30) 09/24/20 04:19 Anion Gap 17 mmol/L 09/24/20 04:19 BUN 22 mg/dL (9-20) H 09/24/20 04:19 Creatinine 2.0 mg/dL (0.8-1.3) H 09/24/20 04:19 Estimated GFR 40 ml/min 09/24/20 04:19 BUN/Creatinine Ratio 11 % 09/24/20 04:19 Glucose 186 mg/dL (75-100) H 09/24/20 04:19 Calcium 8.2 mg/dL (8.4-10.2) L 09/24/20 04:19 Total Bilirubin 0.50 mg/dL (0.1-1.2) 09/24/20 04:19 AST 68 units/L (5-40) H 09/24/20 04:19 ALT 56 units/L (7-56) 09/24/20 04:19 Alkaline Phosphatase 80 units/L (35-129) 09/24/20 04:19 Troponin T 1.030 ng/mL (0.00-0.029) H* 09/24/20 04:19 NT-Pro-B Natriuret Pep 42575 pg/mL (0-900) H 09/24/20 04:19 Total Protein 6.3 g/dL (6.3-8.2) 09/24/20 04:19 Albumin 4.0 g/dL (3.9-5) 09/24/20 04:19 Albumin/Globulin Ratio 1.7 % 09/24/20 04:19 - Diagnostic Impressions Diagnostic Impressions: CXR: FINDINGS: SUPPORT DEVICES: None HEART / MEDIASTINUM: Mild cardiomegaly LUNGS / PLEURA: No significant pulmonary or pleural abnormality. No pneumothorax. ADDITIONAL FINDINGS: No significant additional findings. IMPRESSION: No significant acute abnormality Assessment and Plan Assessment and plan: New onset atrial fibrillation -Rate control with heart rate of 86 bpm -Initiate heparin protocol -On heparin drip -Echo pending -On continuous remote telemetry -Cardiology consulted NSTEMI -Elevated troponin x1 at 1.030 -We will continue to trend -On heparin drip -Cardiology consulted [place] [address] -EF , EF 50-55% (08/2015) -Troponin x1, will trend -CXR negative -No diuresing due to borderline hypotension -Echo pending -Has seen [facility] in [facility] past (Dr. Webb) -Cardiology consulted YULI -Cr on admission 2.0 ( baseline 1.3 07/2018) -Monitor BMP -Hold IVF in the setting of CHF and volume overload -Avoid nephrotoxic agents -Renal dose all meds -If no improvement in the next 24 hours may consider nephrology consult HTN -Presently borderline hypotension -Monitor BP -Hold all antihypertensive meds for now, resume when appropriate Advance Directives: No VTE prophylaxis?: Chemical, Mechanical Plan of care discussed with patient/family: Yes
[2020-09-24 06:59] LABS: Chol/HDL Ratio 3.72 %
[2020-09-24] MEDS: FAMOTIDINE 20 MG/2 ML INJ IV SCH ×2 (09:50→22:31)
--- NOTE | 2020-09-24 10:00 | Event Note ---
Date: 09/24/20 Patient was seen and evaluated this morning, patient was off oxygen and does not have any shortness of breath. Patient states he becomes short of breath on exertion. Cardiology consulted. Echo is pending. Patient has non-STEMI and on heparin drip. Patient has YULI. Patient was admitted earlier this morning and continue management as outlined in the HPI.
--- NOTE | 2020-09-24 15:13 | Consultation ---
History of Present Illness Consult date: 09/24/20 Requesting physician: CARLA HSU Consult reason: atrial fibrillation, congestive heart failure History of present illness: Patient followed by Dr. VI Webb [facility] in the past last seen in March 2016 69-year-old male PMH of hypertension, nonischemic cardiomyopathy, aortic valve regurgitation, mitral valve regurgitation, hyperlipidemia, severe LVH and noncompliance presented to [facility] emergency department complaining of increasing dyspnea on exertion and shortness of breath. In the emergency department the patient was noted to have a BNP of 11,000. His troponin was slightly elevated in the setting of a creatinine of 2.0. A twelve- lead EKG revealed atrial fibrillation with a rapid ventricular response. Currently on telemetry the patient is in sinus rhythm. Past History Past Medical History: heart failure, hypertension (cardiac cath 2011), hyperlipidemia Social history: , lives with family (daughter), full code. denies: smoking, alcohol abuse, prescription drug abuse, IV drug use Family history: hypertension Medications and Allergies Allergies Allergy/AdvReac Type Severity Reaction Status Date / Time No Known Allergies Allergy Unverified 08/22/15 08:53 Home Medications Medication Instructions Recorded Confirmed Last Taken Type ALBUTEROL NEB's [Proventil 0.083% 2.5 mg IH Q6HR PRN 09/24/20 09/24/20 Unknown History NEBS] AtorvaSTATin [Lipitor] 20 mg PO QDAY 09/24/20 09/24/20 Unknown History Clonidine HCl [Kapvay] 0.2 mg PO QDAY 09/24/20 09/24/20 Unknown History Furosemide [Lasix] 20 mg PO QDAY 09/24/20 09/24/20 Unknown History Losartan Potassium 100 mg PO QDAY 09/24/20 09/24/20 Unknown History NIFEdipine [Nifedipine ER] 90 mg PO QDAY 09/24/20 09/24/20 Unknown History carvediloL [Coreg] 25 mg PO BID 09/24/20 09/24/20 Unknown History Active Meds: Active Medications Albuterol (Albuterol 2.5 Mg/3 Ml Nebu) 2.5 mg IH Q6HRT PRN PRN Reason: Dyspnea Atorvastatin Calcium (Atorvastatin 20 Mg Tab) 20 mg PO QHS JENNIFER Famotidine (Famotidine 20 Mg/2 Ml Inj) 10 mg IV BID [facility] Last Admin: 09/24/20 09:50 Dose: 10 mg Documented by: Heparin Sodium (Porcine) (Heparin 10,000 Units/10 Ml Vial) 3,600 unit 40 unit/kg (3600 unit) IV Q6H PRN PRN Reason: Anti-Xa Assay < 0.1 units/ml Heparin Sodium/Sodium Chloride (Heparin/ 0.45% Nacl-25,000 Unit/500 Ml) 25,000 unit in 500 mls @ 27 mls/hr IV TITR JENNIFER; Protocol Last Titration: 09/24/20 14:57 Dose: 1,500 units/hr, 30 mls/hr Documented by: Nitroglycerin (Nitroglycerin 0.4 Mg Tab Subl) 0.4 mg SL .Q5MIN PRN PRN Reason: Chest Pain Review of Systems Constitutional: no weight loss, no weight gain Ears, nose, mouth and throat: deferred Cardiovascular: orthopnea, shortness of breath, dyspnea on exertion, no chest pain, no syncope, no lightheadedness Respiratory: no cough with sputum, no hemoptysis Gastrointestinal: no abdominal pain, no nausea, no vomiting Genitourinary Male: no dysuria, no hematuria Rectal: no pain, no incontinence Musculoskeletal: no neck stiffness, no neck pain Integumentary: no rash, no pruritis Psychiatric: no anxiety, no memory loss Endocrine: no cold intolerance, no heat intolerance Physical Examination Vital Signs Temp Pulse Resp BP Pulse Ox 97.4 F L 77 22 91/70 100 09/24/20 03:54 09/24/20 03:54 09/24/20 03:54 09/24/20 03:54 09/24/20 03:54 General appearance: no acute distress, mild distress HEENT: Positive: PERRL, EOMI Neck: Positive: neck supple, trachea midline Cardiac: Positive: Reg Rate and Rhythm Lungs: Positive: Decreased Breath Sounds Neuro: Positive: Grossly Intact Abdomen: Positive: Active Bowel Sounds Male genitourinary: Positive: deferred Skin: Negative: Rash Extremities: Present: warm Results 09/24/20 04:19 09/24/20 04:19 Cardiac Enzymes 09/24/20 Range/Units 04:19 AST 68 H (5-40) units/L Coagulation 09/24/20 09/24/20 Range/Units 04:38 05:41 PT 14.7 (12.2-14.9) Sec. INR 1.17 H (0.87-1.13) APTT 32.9 (24.2-36.6) Sec. Lipids 09/24/20 Range/Units 04:19 Triglycerides 130 (2-149) mg/dL Cholesterol 138 (50-199) mg/dL HDL Cholesterol 37 L (40-59) mg/dL Cholesterol/HDL Ratio 3.72 % CBC 09/24/20 Range/Units 04:19 WBC 5.2 (4.5-11.0) K/mm3 RBC 4.23 (3.65-5.03) M/mm3 Hgb 13.4 (11.8-15.2) gm/dl Hct 39.4 (35.5-45.6) % Plt Count 157 (140-440) K/mm3 Lymph # (Auto) 1.6 (1.2-5.4) K/mm3 [place] # (Auto) 0.3 (0.0-0.8) K/mm3 Eos # (Auto) 0.0 (0.0-0.4) K/mm3 Baso # (Auto) 0.0 (0.0-0.1) K/mm3 Comprehensive Metabolic Panel 09/24/20 Range/Units 04:19 Sodium 138 (137-145) mmol/L Potassium 4.1 (3.6-5.0) mmol/L Chloride 101.5 (98-107) mmol/L Carbon Dioxide 24 (22-30) mmol/L BUN 22 H (9-20) mg/dL Creatinine 2.0 H (0.8-1.3) mg/dL Glucose 186 H (75-100) mg/dL Calcium 8.2 L (8.4-10.2) mg/dL AST 68 H (5-40) units/L ALT 56 (7-56) units/L Alkaline Phosphatase 80 (35-129) units/L Total Protein 6.3 (6.3-8.2) g/dL Albumin 4.0 (3.9-5) g/dL Assessment and Plan Left heart catheterization 03/05/2012: No angiographically significant evidence of epicardial CAD, severe LV dysfunction EF 20 to 25%, no evidence of aortic stenosis, bilateral renal arteries are patent Echocardiogram 08/22/2015: Normal LV systolic function EF 50 to 55%, severe concentric left ventricular hypertrophy, diastolic dysfunction impaired relaxation, mild to moderate aortic regurgitation, moderate mitral regurgitation, moderate tricuspid regurgitation, RVSP 48 mmHg Acute HFrEF 20% Severe mitral regurgitation/severe tricuspid regurgitation Atrial fibrillation with rapid ventricular response/new onset NSTEMI type II Acute kidney injury Hypertension Hyperlipidemia Currently in sinus rhythm Given history of noncompliance concern with regard to oral anticoagulation Agree with gentle diuresis Slowly initiate low-dose beta-eva Would hold on MELODY/ARB given renal insufficiency
[2020-09-24] MEDS: hydrALAZINE 20 MG/1 ML INJ IV PRN (23:45)
[2020-09-25] MEDS: HEPARIN/ 0.45% NACL DRIP 25,000 UNIT/500 ML BAG IV SCH ×2 (00:44→23:49)
[2020-09-25] MEDS ORDERED: hydrALAZINE 10 MG TAB PO PRN (01:58)
[2020-09-25] MEDS ORDERED: LORazepam 2 MG/ML VIAL ONE (02:13)
[2020-09-25] MEDS: LORazepam 2 MG/ML VIAL IV PRN (02:14)
[2020-09-25] MEDS: FAMOTIDINE 10 MG TAB PO SCH ×2 (10:10→23:10)
--- NOTE | 2020-09-25 10:40 | Progress Note ---
Assessment and Plan Assessment and plan: 69-year-old -Chinese male who is a former smoker with history of CHF and hypertension who presents [facility] ED with complaints of dyspnea x1 to 2 weeks. Patient states that he has dyspnea at rest which is worse with exertion for the past 1 to 2 weeks. He has been using his home rescue inhaler (albuterol) and nebulizer more frequently without any relief. He denies cough, fever, PND, orthopnea, bilateral lower extremity swelling, generalized weakness. Patient has a EF of 50 to 55% with severe LVH seen on echo done at outpatient facility ([facility] 08/2015). Patient states he does not follow-up with test specialist on a regular basis. His primary care physician is Dr. Lou, which he follows on a regular basis. Patient is a and lives with his ad ult daughter. Denies recent tobacco use. Denies nausea, vomiting, diarrhea, chest pain, palpitations, headache, cough, hemoptysis, or recent sick contacts. Per test specialist: Left heart catheterization 03/05/2012: No angiographically significant evidence of epicardial CAD, severe LV dysfunction EF 20 to 25%, no evidence of aortic stenosis, bilateral renal arteries are patent Echocardiogram 08/22/2015: Normal LV systolic function EF 50 to 55%, severe concentric left ventricular hypertrophy, diastolic dysfunction impaired relaxation, mild to moderate aortic regurgitation, moderate mitral regurgitation, moderate tricuspid regurgitation, RVSP 48 mmHg 09/25: Although markedly lethargic, patient reports improvement in symptoms. Cardiology input noted agree with gentle diuresis and slowly initiate low-dose beta-eva. Continue to hold MELODY/ARB due to renal insufficiency. Follow echo report Otherwise continue other medical treatment aspiration precautions. Wean oxygen as tolerated. Monitor blood pressure and adjust as needed. Patient does have a little bit difficult continue to monitor this is likely secondary to BiPAP. DVT and GI prophylaxis Acute HFrEF 20% Severe mitral regurgitation/severe tricuspid regurgitation Atrial fibrillation with rapid ventricular response/new onset NSTEMI type II Delirium possible underlining dementia Acute kidney injury secondary to vasomotor nephropathy Hypertension Hyperlipidemia History Interval history: Patient seen and examined intermittent confusion possible delirium. Admitted with congestive heart failure and A. fib with RVR. Hospitalist Physical - Physical exam Narrative exam: General appearance: Present: No acute distress, alert and oriented 3, pleasant, well-nourished, older adult male - EENT Eyes: Present: PERRL, EOM intact ENT: hearing intact, no dentition - Neck Neck: Present: supple, normal ROM mild irritation at the bridge of the nose - Respiratory Respiratory effort: Non-labored Respiratory: Diminished bases - Cardiovascular Heart rate: 88 (bpm) Rhythm: A. fib Heart Sounds: Present: S1 & S2. Absent: rub, click - Extremities Extremities: no ischemia, pulses intact, - Peripheral Assessment Peripheral Pulses: within normal limits - Abdominal General gastrointestinal: soft, non-tender, normal bowel sounds - Integumentary Integumentary: Present: warm, dry - Musculoskeletal Musculoskeletal: Able to move all extremities -Neurological Neurological: CN II-XII intact - Psychiatric Psychiatric: Appropriate for situation ,cooperative - Constitutional Vitals: Temp Pulse Resp BP Pulse Ox 98.1 F 79 17 144/95 100 09/25/20 08:00 09/25/20 10:01 09/25/20 10:01 09/25/20 10:01 09/25/20 10:01 General appearance: Present: no acute distress, mild distress HEART Score - HEART Score Troponin: Troponin T 0.883 ng/mL (0.00-0.029) H* 09/24/20 07:42 Results - Labs CBC & Chem 7: 09/26/20 05:17 09/25/20 06:49 Labs: Laboratory Last Values WBC 5.2 K/mm3 (4.5-11.0) 09/24/20 04:19 RBC 4.23 M/mm3 (3.65-5.03) 09/24/20 04:19 Hgb 13.4 gm/dl (11.8-15.2) 09/24/20 04:19 Hct 39.4 % (35.5-45.6) 09/24/20 04:19 MCV 93 fl (84-94) 09/24/20 04:19 MCH 32 pg (28-32) 09/24/20 04:19 MCHC 34 % (32-34) 09/24/20 04:19 RDW 14.4 % (13.2-15.2) 09/24/20 04:19 Plt Count 157 K/mm3 (140-440) 09/24/20 04:19 Lymph % (Auto) 29.9 % (13.4-35.0) 09/24/20 04:19 [place] % (Auto) 6.6 % (0.0-7.3) 09/24/20 04:19 Eos % (Auto) 0.9 % (0.0-4.3) 09/24/20 04:19 Baso % (Auto) 0.4 % (0.0-1.8) 09/24/20 04:19 Lymph # (Auto) 1.6 K/mm3 (1.2-5.4) 09/24/20 04:19 [place] # (Auto) 0.3 K/mm3 (0.0-0.8) 09/24/20 04:19 Eos # (Auto) 0.0 K/mm3 (0.0-0.4) 09/24/20 04:19 Baso # (Auto) 0.0 K/mm3 (0.0-0.1) 09/24/20 04:19 Seg Neutrophils % 62.2 % (40.0-70.0) 09/24/20 04:19 Seg Neutrophils # 3.3 K/mm3 (1.8-7.7) 09/24/20 04:19 PT 14.7 Sec. (12.2-14.9) 09/24/20 04:38 INR 1.17 (0.87-1.13) H 09/24/20 04:38 APTT 32.9 Sec. (24.2-36.6) 09/24/20 05:41 Heparin Anti-Xa Level 1.12 U.I./ml (0.3-0.7) H 09/25/20 06:49 Sodium 139 mmol/L (137-145) 09/25/20 06:49 Potassium 4.2 mmol/L (3.6-5.0) 09/25/20 06:49 Chloride 104.0 mmol/L (98-107) 09/25/20 06:49 Carbon Dioxide 22 mmol/L (22-30) 09/25/20 06:49 Anion Gap 17 mmol/L 09/25/20 06:49 BUN 30 mg/dL (9-20) H 09/25/20 06:49 Creatinine 1.8 mg/dL (0.8-1.3) H 09/25/20 06:49 Estimated GFR 45 ml/min 09/25/20 06:49 BUN/Creatinine Ratio 17 % 09/25/20 06:49 Glucose 111 mg/dL (75-100) H 09/25/20 06:49 Calcium 8.0 mg/dL (8.4-10.2) L 09/25/20 06:49 Total Bilirubin 0.50 mg/dL (0.1-1.2) 09/24/20 04:19 AST 68 units/L (5-40) H 09/24/20 04:19 ALT 56 units/L (7-56) 09/24/20 04:19 Alkaline Phosphatase 80 units/L (35-129) 09/24/20 04:19 Troponin T 0.883 ng/mL (0.00-0.029) H* 09/24/20 07:42 NT-Pro-B Natriuret Pep 05782 pg/mL (0-900) H 09/24/20 04:19 Total Protein 6.3 g/dL (6.3-8.2) 09/24/20 04:19 Albumin 4.0 g/dL (3.9-5) 09/24/20 04:19 Albumin/Globulin Ratio 1.7 % 09/24/20 04:19 Triglycerides 130 mg/dL (2-149) 09/24/20 04:19 Cholesterol 138 mg/dL (50-199) 09/24/20 04:19 LDL Cholesterol Direct 90 mg/dL (50-130) 09/24/20 04:19 HDL Cholesterol 37 mg/dL (40-59) L 09/24/20 04:19 Cholesterol/HDL Ratio 3.72 % 09/24/20 04:19 Coronavirus (PCR) Negative (Negative) 09/24/20 Unknown Henry/IV: Voiding Method Urinal Active Medications - Current Medications Current Medications: Generic Name Dose Route Start Last Admin Trade Name Freq PRN Reason Stop Dose Admin Albuterol 2.5 mg 09/24/20 05:53 09/24/20 22:48 Albuterol 2.5 Mg/3 Ml Nebu IH 2.5 mg Q6HRT PRN Administration Dyspnea Atorvastatin Calcium 20 mg 09/24/20 22:00 09/24/20 22:32 Atorvastatin 20 Mg Tab PO 20 mg QHS JENNIFER Administration Famotidine 10 mg 09/25/20 10:00 09/25/20 10:10 Famotidine 10 Mg Tab PO 10 mg BID JENNIFER Administration Heparin Sodium (Porcine) 3,600 unit 09/24/20 05:41 Heparin 10,000 Units/10 Ml Vial 40 unit/kg (3600 unit) IV Q6H PRN Anti-Xa Assay < 0.1 units/ml Hydralazine HCl 10 mg 09/24/20 23:21 09/24/20 23:45 Hydralazine 20 Mg/1 Ml Inj IV 10 mg Q6HR PRN Administration SBP >/=160; DBP >/=100 Hydralazine HCl 20 mg 09/25/20 01:58 Hydralazine 10 Mg Tab PO Q6H PRN SBP >/=160; DBP >/=100 Heparin Sodium/Sodium Chloride 25,000 unit in 500 mls @ 27 mls/hr 09/24/20 06:00 09/25/20 10:05 Heparin/ 0.45% Nacl-25,000 Unit/500 Ml IV 1,200 units/hr TITR JENNIFER 24 mls/hr Titration Protocol 1,350 UNITS/HR Lorazepam 1 mg 09/25/20 02:00 09/25/20 02:14 Lorazepam 2 Mg/Ml Vial IV 1 mg DAILY PRN Administration Agitation Nitroglycerin 0.4 mg 09/24/20 05:56 Nitroglycerin 0.4 Mg Tab Subl SL .Q5MIN PRN Chest Pain Nutrition/Malnutrition Assess - Dietary Evaluation Nutrition/Malnutrition Findings: Nutrition Notes Start: 09/25/20 09:40 Freq: Status: Active Protocol: Document 09/25/20 09:41 HARISH (Rec: 09/25/20 09:42 HARISH [id number]) Nutrition Notes 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 Pt will be assessed upon further consult or LOS. Burn Absent Trauma Absent
[2020-09-25] MEDS ORDERED: HALOPERIDOL LACTATE 5 MG/1 ML INJ IV ONE (11:58)
--- NOTE | 2020-09-25 13:20 | Progress Note ---
Assessment and Plan Continue PRN IV diuresis with strict I/Os. Recommend switching from Coreg to a cardioselective beta eva. ARB held in he setting of YULI. Will consider addition of Aldactone when renal fxn is stable. Trend cardiac enzymes. May consider ischemic eval when clinically stable. Ok to transition to Eliquis for AF anticoagulation. Plan for eventual outpatient eval of valvulopathy. Pt seen in conjunction with Dr. Esparza, who agrees with the assessment and plan of care. - Patient Problems (1) Asthma Current Visit: Yes Status: Chronic (2) Acute on chronic HFrEF (heart failure with reduced ejection fraction) Current Visit: Yes Status: Acute (3) YULI (acute kidney injury) Current Visit: Yes Status: Acute (4) Congestive cardiomyopathy Current Visit: Yes Status: Chronic (5) Severe mitral regurgitation Current Visit: Yes Status: Chronic (6) Severe tricuspid regurgitation Current Visit: Yes Status: Chronic (7) New onset atrial fibrillation Current Visit: Yes Status: Resolved (8) NSTEMI (non-ST elevated myocardial infarction) Current Visit: Yes Status: Acute Plan to address problem: Type 2 (9) HTN (hypertension) Current Visit: Yes Status: Chronic Qualifiers: Hypertension type: essential hypertension Qualified Code(s): I10 - Essential (primary) hypertension (10) HLD (hyperlipidemia) Current Visit: Yes Status: Chronic Qualifiers: Hyperlipidemia type: mixed hyperlipidemia Qualified Code(s): E78.2 - Mixed hyperlipidemia (11) Medical non-compliance Current Visit: Yes Status: Chronic Subjective Date of service: 09/25/20 Principal diagnosis: A/C HFrEF, YULI, New Onset AF w RVR, NSTEMI 2 Interval history: Sitting up comfortably in bedside chair upon exam. States he feels significantly better than yesterday. Still somewhat SOB. Otherwise no new complaints. Remains in SR 70s on tele, no events overnight. Objective Last Vital Signs Temp 97.9 F 09/25/20 12:00 Pulse 79 09/25/20 10:01 Resp 17 09/25/20 10:01 BP 144/95 09/25/20 10:01 Pulse Ox 100 09/25/20 10:01 - Physical Examination General: No Apparent Distress HEENT: Positive: EOMI, Normocephaly, Mucus Membranes Moist Neck: Positive: neck supple, trachea midline. Negative: JVD/HJR Cardiac: Positive: Reg Rate and Rhythm, S1/S2, Systolic Murmur (2/6) Lungs: Positive: Decreased Breath Sounds (bilaterally) Neuro: Positive: Grossly Intact Abdomen: Positive: Soft. Negative: Tender Skin: Negative: Rash Musculoskeletal: No Pain Extremities: Present: upper extr. pulses, lower extr. pulses, warm. Absent: edema - Labs and Meds Comprehensive Metabolic Panel 09/25/20 Range/Units 06:49 Sodium 139 (137-145) mmol/L Potassium 4.2 (3.6-5.0) mmol/L Chloride 104.0 (98-107) mmol/L Carbon Dioxide 22 (22-30) mmol/L BUN 30 H (9-20) mg/dL Creatinine 1.8 H (0.8-1.3) mg/dL Glucose 111 H (75-100) mg/dL Calcium 8.0 L (8.4-10.2) mg/dL - Imaging and Cardiology EKG: report reviewed, image reviewed Echo: report reviewed (09/23/2020 - LV mildly dilated, mod concentric LVH, EF 20%, RV mild-mod dilated, RV sys fxn mod reduced, mild AR, severe MR, severe TR, RVSP 31mmHg) Cardiac cath: report reviewed (2011 - no evidence of significant epicardial coronary disease, severe LV dysfxn, EF 20-25%, no evidence of , patent renal arteries bilaterally) - Telemetry EKG Rhythm: Sinus Rhythm - EKG Supraventricular dysrhythmia: atrial fibrillation Repolarization changes or abnormalities: nonspecific abnormality, ST segment, and/or T wave - Allied health notes Allied health notes reviewed: nursing
--- NOTE | 2020-09-25 13:25 | Consultation ---
History of Present Illness Consult date: 09/25/20 Reason for Consult: Change in mentation History of present illness: SOB with exertion History of present illness: 69-year-old -Togolese male who is a former smoker with history of CHF and hypertension who presents [facility] ED with complaints of dyspnea x1 to 2 weeks. Patient states that he has dyspnea at rest which is worse with exertion for the past 1 to 2 weeks. He has been using his home rescue inhaler (albuterol) and nebulizer more frequently without any relief. He denies cough, fever, PND, orthopnea, bilateral lower extremity swelling, generalized weakness. Patient has a EF of 50 to 55% with severe LVH seen on echo done at outpatient facility ([facility] 08/2015). Patient states he does not follow-up with vp information technology on a regular basis. His primary care physician is Dr. Lou, which he follows on a regular basis. Patient is a and lives with his a dult daughter. Denies recent tobacco use. Denies nausea, vomiting, diarrhea, chest pain, palpitations, headache, cough, hemoptysis, or recent sick contacts. currently he is some what lethargic follow simple command neurology asked to see Past History Past Medical History: heart failure, hypertension (cardiac cath 2011) Social history: , lives with family (daughter), full code. denies: smoking, alcohol abuse, prescription drug abuse, IV drug use Family history: hypertension Medications and Allergies Allergies Allergy/AdvReac Type Severity Reaction Status Date / Time No Known Allergies Allergy Unverified 08/22/15 08:53 Home Medications Medication Instructions Recorded Confirmed Last Taken Type ALBUTEROL NEB's [Proventil 0.083% 2.5 mg IH Q6HR PRN 09/24/20 09/24/20 Unknown History NEBS] AtorvaSTATin [Lipitor] 20 mg PO QHS 09/24/20 09/24/20 Unknown History Clonidine HCl [Kapvay] 0.2 mg PO QDAY 09/24/20 09/24/20 Unknown History Furosemide [Lasix] 20 mg PO QDAY 09/24/20 09/24/20 Unknown History Losartan Potassium 100 mg PO QDAY 09/24/20 09/24/20 Unknown History NIFEdipine [Nifedipine ER] 90 mg PO QDAY 09/24/20 09/24/20 Unknown History carvediloL [Coreg] 25 mg PO BID 09/24/20 09/24/20 Unknown History Active Meds: Active Medications Albuterol (Albuterol 2.5 Mg/3 Ml Nebu) 2.5 mg IH Q6HRT PRN PRN Reason: Dyspnea Atorvastatin Calcium (Atorvastatin 20 Mg Tab) 20 mg PO QHS JENNIFER Heparin Sodium (Porcine) (Heparin 10,000 Units/10 Ml Vial) 3,600 unit 40 unit/kg (3600 unit) IV Q6H PRN PRN Reason: Anti-Xa Assay < 0.1 units/ml Heparin Sodium/Sodium Chloride (Heparin/ 0.45% Nacl-25,000 Unit/500 Ml) 25,000 unit in 500 mls @ 27 mls/hr IV TITR JENNIFER; Protocol Nitroglycerin (Nitroglycerin 0.4 Mg Tab Subl) 0.4 mg SL .Q5MIN PRN PRN Reason: Chest Pain Review of Systems All systems: negative (As noted in HPI) Past History Past Medical History: heart failure, hypertension (cardiac cath 2011), hyperlipidemia Social history: , lives with family (daughter), full code. denies: smoking, alcohol abuse, prescription drug abuse, IV drug use Family history: hypertension Medications and Allergies Allergies Allergy/AdvReac Type Severity Reaction Status Date / Time No Known Allergies Allergy Unverified 08/22/15 08:53 Home Medications Medication Instructions Recorded Confirmed Last Taken Type ALBUTEROL NEB's [Proventil 0.083% 2.5 mg IH Q6HR PRN 09/24/20 09/24/20 Unknown History NEBS] AtorvaSTATin [Lipitor] 20 mg PO QDAY 09/24/20 09/24/20 Unknown History Clonidine HCl [Kapvay] 0.2 mg PO QDAY 09/24/20 09/24/20 Unknown History Furosemide [Lasix] 20 mg PO QDAY 09/24/20 09/24/20 Unknown History Losartan Potassium 100 mg PO QDAY 09/24/20 09/24/20 Unknown History NIFEdipine [Nifedipine ER] 90 mg PO QDAY 09/24/20 09/24/20 Unknown History carvediloL [Coreg] 25 mg PO BID 09/24/20 09/24/20 Unknown History Active Meds: Active Medications Albuterol (Albuterol 2.5 Mg/3 Ml Nebu) 2.5 mg IH Q6HRT PRN PRN Reason: Dyspnea Last Admin: 09/24/20 22:48 Dose: 2.5 mg Documented by: Atorvastatin Calcium (Atorvastatin 20 Mg Tab) 20 mg PO QHS [facility] Last Admin: 09/24/20 22:32 Dose: 20 mg Documented by: Famotidine (Famotidine 10 Mg Tab) 10 mg PO BID [facility] Last Admin: 09/25/20 10:10 Dose: 10 mg Documented by: Heparin Sodium (Porcine) (Heparin 10,000 Units/10 Ml Vial) 3,600 unit 40 unit/kg (3600 unit) IV Q6H PRN PRN Reason: Anti-Xa Assay < 0.1 units/ml Hydralazine HCl (Hydralazine 20 Mg/1 Ml Inj) 10 mg IV Q6HR PRN PRN Reason: SBP >/=160; DBP >/=100 Last Admin: 09/24/20 23:45 Dose: 10 mg Documented by: Hydralazine HCl (Hydralazine 10 Mg Tab) 20 mg PO Q6H PRN PRN Reason: SBP >/=160; DBP >/=100 Heparin Sodium/Sodium Chloride (Heparin/ 0.45% Nacl-25,000 Unit/500 Ml) 25,000 unit in 500 mls @ 27 mls/hr IV TITR [facility]; Protocol Last Titration: 09/25/20 10:05 Dose: 1,200 units/hr, 24 mls/hr Documented by: Lorazepam (Lorazepam 2 Mg/Ml Vial) 1 mg IV DAILY PRN PRN Reason: Agitation Last Admin: 09/25/20 02:14 Dose: 1 mg Documented by: Nitroglycerin (Nitroglycerin 0.4 Mg Tab Subl) 0.4 mg SL .Q5MIN PRN PRN Reason: Chest Pain Physical Examination - Vital Signs Vital Signs: Vital Signs Temp Pulse Resp BP Pulse Ox 97.4 F L 77 22 91/70 100 09/24/20 03:54 09/24/20 03:54 09/24/20 03:54 09/24/20 03:54 09/24/20 03:54 - Constitutional General appearance: comfortable, other (sleepy hard to awak ) - EENT EENT: Present: PERRL, mucous membranes moist - Respiratory Respiratory: Present: lungs clear, rhonchi - Cardiovascular Cardiovascular: Present: regular rate, normal S1, normal S2 Extremities: Present: no peripheral edema bilatateraly - Gastrointestinal Gastrointestinal: Present: normoactive bowel sounds - Neurologic Cranial nerve examination: PERRL, EOMI, other (left facial slight weakness ) Speech examination: other (lethargic) Sensorimotor examination: intact Detailed motor examination: grossly full strength in, other (brisk reflexes on right and hypo on left side ) Results - Laboratory Findings CBC and BMP: 09/24/20 04:19 09/25/20 06:49 Abnormal Lab Findings: Abnormal Labs 09/24/20 09/24/20 09/24/20 04:19 04:19 04:38 INR 1.17 H Heparin Anti-Xa Level BUN 22 H Creatinine 2.0 H Glucose 186 H Calcium 8.2 L AST 68 H Troponin T 1.030 H* NT-Pro-B Natriuret Pep 14084 H HDL Cholesterol 37 L 09/24/20 09/24/20 09/24/20 07:42 13:32 21:05 INR Heparin Anti-Xa Level 1.25 H 1.30 H BUN Creatinine Glucose Calcium AST Troponin T 0.883 H* NT-Pro-B Natriuret Pep HDL Cholesterol 09/25/20 09/25/20 06:49 06:49 INR Heparin Anti-Xa Level 1.12 H BUN 30 H Creatinine 1.8 H Glucose 111 H Calcium 8.0 L AST Troponin T NT-Pro-B Natriuret Pep HDL Cholesterol Assessment and Plan Assessment and Plan Assessment and plan: 69-year-old -Togolese male who is a former smoker with history of CHF and hypertension who presents [facility] ED with complaints of dyspnea x1 to 2 weeks. Patient states that he has dyspnea at rest which is worse with exertion for the past 1 to 2 weeks. He has been using his home rescue inhaler (albuterol) and nebulizer more frequently without any relief. He denies cough, fever, PND, orthopnea, bilateral lower extremity swelling, generalized weakness. Patient has a EF of 50 to 55% with severe LVH seen on echo done at outpatient facility ([facility] 08/2015). Patient states he does not follow-up with vp information technology on a regular basis. #he is with change in mentation and lethargy -R/O CVA -new onset AF -On heparine - possible left facial droop -EF# 20% -MRI brain #ew onset atrial fibrillation -Rate control with heart rate of 86 bpm -Initiate heparin protocol -On heparin drip -Echo Ef#20% -On continuous remote telemetry -Cardiology consulted #NSTEMI -Elevated troponin x1 at 1.030 -On heparin drip -Cardiology consulted #[place] [address] -EF , EF 50-55% (08/2015) -Troponin x1, will trend -CXR negative -No diuresing due to borderline hypotension #YULI -Cr on admission 2.0 ( baseline 1.3 07/2018) -Monitor BMP #HTN -Presently borderline hypotension -Monitor BP -Hold all antihypertensive meds for now, resume when appropriate PLAN 1- NPO with PT evaluate 2- MRI brain r/o CVA 3- maintain current treatment 4- liptor 40 mg 5- will follow Advance Directives: No VTE prophylaxis?: Chemical, Mechanical
[2020-09-25] MEDS ORDERED: FUROSEMIDE 20 MG/2 ML INJ IV ONE ×2 (14:00→17:00)
[2020-09-25] MEDS ORDERED: HEPARIN 10,000 UNITS/10 ML VIAL IV ONE (16:15)
--- NOTE | 2020-09-25 16:40 | Cat Scan Report ---
CT head/brain wo con INDICATION: AMS. TECHNIQUE: Routine CT head. All CT scans at this location are performed using CT dose reduction for A HUNG by means of automated exposure control. COMPARISON: None. FINDINGS: Intracranial: Shah-white matter differentiation is maintained. No intracranial hemorrhage. No extra a xial collection. No hydrocephalus. No herniation. Periventricular and centrum semiovale white matter hypoattenuation most consistent with sequela of chronic microvascular disease. Sinuses: Paranasal sinuses and mastoid air cells are essentially clear. Orbits: Globes are intact. Calvarium: No acute fracture. IMPRESSION: 1. No acute intracranial abnormality. Signer Name: Nikolai Jones MD Signed: 09/25/2020 4:36 PM Workstation Name: [id number]
--- NOTE | 2020-09-25 17:15 | Magnetic Resonance Report ---
NONENHANCED MR SCAN OF THE BRAIN: INDICATION / CLINICAL INFORMATION: weakness and change in mentation , new onset AF. TECHNIQUE: Multiplanar, multisequence MR images of the brain obtained. COMPARISON: CT scan of the head obtained earlier today FINDINGS: BRAIN / INTRACRANIAL CONTENTS: No acute ischemia, acute hemorrhage, mass effect, midline shift, or hy drocephalus. Subtle chronic streaky ischemic change in the left cerebellar hemisphere Confluent nancy ventricular white matter hyperintensity; deep hemispheric white matter lesions (Fazekas 1) probably d ue to chronic small vessel disease CRANIOCERVICAL JUNCTION: No significant abnormality. Fluid accumulation in the atlantooccipital joint s VASCULAR FLOW-VOIDS: No significant abnormality. ORBITS: No significant abnormality of visualized orbits. SINUSES / MASTOIDS: No significant abnormality of visualized sinuses and mastoid air cells. ADDITIONAL FINDINGS: None. IMPRESSION: 1. No acute focal parenchymal lesion in the brain Signer Name: Ronni Wiley MD Signed: 09/25/2020 5:10 PM Workstation Name: [id number]
[2020-09-25] MEDS ORDERED: FUROSEMIDE 20 MG/2 ML INJ IV SCH (18:00)
[2020-09-25] MEDS ORDERED: METOPROLOL TARTRATE 25 MG TAB PO SCH (22:00)
[2020-09-26] MEDS: hydrALAZINE 20 MG/1 ML INJ IV PRN ×2 (00:53→13:30)
[2020-09-26] MEDS ORDERED: hydrALAZINE 20 MG/1 ML INJ IV ONE (02:54)
[2020-09-26] MEDS: LORazepam 2 MG/ML VIAL IV PRN (03:06)
[2020-09-26 06:29] LABS: Hematocrit 41.7 % (35.5-45.6); Hemoglobin 14.2 gm/dl (11.8-15.2)
--- NOTE | 2020-09-26 09:12 | Progress Note ---
Assessment and Plan Assessment and plan: 69-year-old -Ang[place] male who is a former smoker with history of CHF and hypertension who presents [facility] ED with complaints of dyspnea x1 to 2 weeks. Patient states that he has dyspnea at rest which is worse with exertion for the past 1 to 2 weeks. He has been using his home rescue inhaler (albuterol) and nebulizer more frequently without any relief. He denies cough, fever, PND, orthopnea, bilateral lower extremity swelling, generalized weakness. Patient has a EF of 50 to 55% with severe LVH seen on echo done at outpatient facility ([facility] 08/2015). Patient states he does not follow-up with operating system programmer on a regular basis. His primary care physician is Dr. Lou, which he follows on a regular basis. Patient is a and lives with his ad ult daughter. Denies recent tobacco use. Denies nausea, vomiting, diarrhea, chest pain, palpitations, headache, cough, hemoptysis, or recent sick contacts. Per operating system programmer: Left heart catheterization 03/05/2012: No angiographically significant evidence of epicardial CAD, severe LV dysfunction EF 20 to 25%, no evidence of aortic stenosis, bilateral renal arteries are patent Echocardiogram 08/22/2015: Normal LV systolic function EF 50 to 55%, severe concentric left ventricular hypertrophy, diastolic dysfunction impaired relaxation, mild to moderate aortic regurgitation, moderate mitral regurgitation, moderate tricuspid regurgitation, RVSP 48 mmHg 09/25: Although markedly lethargic, patient reports improvement in symptoms. Cardiology input noted agree with gentle diuresis and slowly initiate low-dose beta-eva. Continue to hold MELODY/ARB due to renal insufficiency. Follow echo report Otherwise continue other medical treatment aspiration precautions. Wean oxygen as tolerated. Monitor blood pressure and adjust as needed. Patient does have a little bit difficult continue to monitor this is likely secondary to BiPAP. DVT and GI prophylaxis 09/26: Patient seen and examined this morning respiratory status improved no chest pain reported. Will adjust beta-eva to 25 mg p.o. twice daily continue to hold MELODY and ARB for renal insufficiency. Will restart nifedipine due to elevated blood pressure on hold clonidine at this point. Will obtain PT OT for debility management in anticipation for discharge. Patient can be transferred to telemetry. Cardiology continues to follow for the elevated tro ponin. Discussed with neurologist MRI is negative no acute stroke confusion is likely secondary to delirium and sundowning. Patient's daughter was updated yesterday. Acute HFrEF 20% Severe mitral regurgitation/severe tricuspid regurgitation Atrial fibrillation with rapid ventricular response/new onset NSTEMI type II Delirium possible underlining dementia Acute kidney injury secondary to vasomotor nephropathy Hypertension Hyperlipidemia History Interval history: Patient seen and examined no new complaints mental status is improved and stable this morning reports improvement of his clinical symptoms. Blood pressure still elevated per nursing staff. Hospitalist Physical - Physical exam Narrative exam: General appearance: Present: No acute distress, alert and oriented 3, pleasant, well-nourished, older adult male - EENT Eyes: Present: PERRL, EOM intact ENT: hearing intact, no dentition - Neck Neck: Present: supple, normal ROM mild irritation at the bridge of the nose - Respiratory Respiratory effort: Non-labored Respiratory: Diminished bases - Cardiovascular Heart rate: 88 (bpm) Rhythm: A. fib Heart Sounds: Present: S1 & S2. Absent: rub, click - Extremities Extremities: no ischemia, pulses intact, - Peripheral Assessment Peripheral Pulses: within normal limits - Abdominal General gastrointestinal: soft, non-tender, normal bowel sounds - Integumentary Integumentary: Present: warm, dry - Musculoskeletal Musculoskeletal: Able to move all extremities -Neurological Neurological: CN II-XII intact - Psychiatric Psychiatric: Appropriate for situation ,cooperative - Constitutional Vitals: Temp Pulse Resp BP Pulse Ox 98.7 F 87 26 H 181/90 100 09/26/20 07:00 09/26/20 07:01 09/26/20 07:01 09/26/20 07:01 09/26/20 08:11 General appearance: Present: no acute distress, mild distress HEART Score - HEART Score Troponin: Troponin T 0.407 ng/mL (0.00-0.029) H* 09/25/20 22:43 Results - Labs CBC & Chem 7: 09/26/20 05:17 09/25/20 06:49 Labs: Laboratory Last Values WBC 5.2 K/mm3 (4.5-11.0) 09/24/20 04:19 RBC 4.23 M/mm3 (3.65-5.03) 09/24/20 04:19 Hgb 14.2 gm/dl (11.8-15.2) 09/26/20 05:17 Hct 41.7 % (35.5-45.6) 09/26/20 05:17 MCV 93 fl (84-94) 09/24/20 04:19 MCH 32 pg (28-32) 09/24/20 04:19 MCHC 34 % (32-34) 09/24/20 04:19 RDW 14.4 % (13.2-15.2) 09/24/20 04:19 Plt Count 155 K/mm3 (140-440) 09/26/20 05:17 Lymph % (Auto) 29.9 % (13.4-35.0) 09/24/20 04:19 [place] % (Auto) 6.6 % (0.0-7.3) 09/24/20 04:19 Eos % (Auto) 0.9 % (0.0-4.3) 09/24/20 04:19 Baso % (Auto) 0.4 % (0.0-1.8) 09/24/20 04:19 Lymph # (Auto) 1.6 K/mm3 (1.2-5.4) 09/24/20 04:19 [place] # (Auto) 0.3 K/mm3 (0.0-0.8) 09/24/20 04:19 Eos # (Auto) 0.0 K/mm3 (0.0-0.4) 09/24/20 04:19 Baso # (Auto) 0.0 K/mm3 (0.0-0.1) 09/24/20 04:19 Seg Neutrophils % 62.2 % (40.0-70.0) 09/24/20 04:19 Seg Neutrophils # 3.3 K/mm3 (1.8-7.7) 09/24/20 04:19 PT 14.7 Sec. (12.2-14.9) 09/24/20 04:38 INR 1.17 (0.87-1.13) H 09/24/20 04:38 APTT 32.9 Sec. (24.2-36.6) 09/24/20 05:41 Heparin Anti-Xa Level 0.70 U.I./ml (0.3-0.7) 09/26/20 05:17 Sodium 139 mmol/L (137-145) 09/25/20 06:49 Potassium 4.2 mmol/L (3.6-5.0) 09/25/20 06:49 Chloride 104.0 mmol/L (98-107) 09/25/20 06:49 Carbon Dioxide 22 mmol/L (22-30) 09/25/20 06:49 Anion Gap 17 mmol/L 09/25/20 06:49 BUN 30 mg/dL (9-20) H 09/25/20 06:49 Creatinine 1.8 mg/dL (0.8-1.3) H 09/25/20 06:49 Estimated GFR 45 ml/min 09/25/20 06:49 BUN/Creatinine Ratio 17 % 09/25/20 06:49 Glucose 111 mg/dL (75-100) H 09/25/20 06:49 Calcium 8.0 mg/dL (8.4-10.2) L 09/25/20 06:49 Total Bilirubin 0.50 mg/dL (0.1-1.2) 09/24/20 04:19 AST 68 units/L (5-40) H 09/24/20 04:19 ALT 56 units/L (7-56) 09/24/20 04:19 Alkaline Phosphatase 80 units/L (35-129) 09/24/20 04:19 Troponin T 0.407 ng/mL (0.00-0.029) H* 09/25/20 22:43 NT-Pro-B Natriuret Pep 88516 pg/mL (0-900) H 09/24/20 04:19 Total Protein 6.3 g/dL (6.3-8.2) 09/24/20 04:19 Albumin 4.0 g/dL (3.9-5) 09/24/20 04:19 Albumin/Globulin Ratio 1.7 % 09/24/20 04:19 Triglycerides 130 mg/dL (2-149) 09/24/20 04:19 Cholesterol 138 mg/dL (50-199) 09/24/20 04:19 LDL Cholesterol Direct 90 mg/dL (50-130) 09/24/20 04:19 HDL Cholesterol 37 mg/dL (40-59) L 09/24/20 04:19 Cholesterol/HDL Ratio 3.72 % 09/24/20 04:19 Coronavirus (PCR) Negative (Negative) 09/24/20 Unknown Henry/IV: Voiding Method Condom Catheter Active Medications - Current Medications Current Medications: Generic Name Dose Route Start Last Admin Trade Name Freq PRN Reason Stop Dose Admin Albuterol 2.5 mg 09/24/20 05:53 09/24/20 22:48 Albuterol 2.5 Mg/3 Ml Nebu IH 2.5 mg Q6HRT PRN Administration Dyspnea Atorvastatin Calcium 20 mg 09/24/20 22:00 09/25/20 23:07 Atorvastatin 20 Mg Tab PO 20 mg QHS JENNIFER Administration Famotidine 10 mg 09/25/20 10:00 09/25/20 23:10 Famotidine 10 Mg Tab PO 10 mg BID JENNIFER Administration Heparin Sodium (Porcine) 3,600 unit 09/24/20 05:41 Heparin 10,000 Units/10 Ml Vial 40 unit/kg (3600 unit) IV Q6H PRN Anti-Xa Assay < 0.1 units/ml Hydralazine HCl 10 mg 09/24/20 23:21 09/26/20 00:53 Hydralazine 20 Mg/1 Ml Inj IV 10 mg Q6HR PRN Administration SBP >/=160; DBP >/=100 Hydralazine HCl 20 mg 09/25/20 01:58 Hydralazine 10 Mg Tab PO Q6H PRN SBP >/=160; DBP >/=100 Heparin Sodium/Sodium Chloride 25,000 unit in 500 mls @ 27 mls/hr 09/24/20 06:00 09/26/20 07:02 Heparin/ 0.45% Nacl-25,000 Unit/500 Ml IV 1,100 units/hr TITR JENNIFER 22 mls/hr Titration Protocol 1,350 UNITS/HR Lorazepam 1 mg 09/25/20 02:00 09/26/20 03:06 Lorazepam 2 Mg/Ml Vial IV 1 mg DAILY PRN Administration Agitation Metoprolol Tartrate 12.5 mg 09/25/20 22:00 09/25/20 23:08 Metoprolol Tartrate 25 Mg Tab PO 12.5 mg BID JENNIFER Administration Nitroglycerin 0.4 mg 09/24/20 05:56 Nitroglycerin 0.4 Mg Tab Subl SL .Q5MIN PRN Chest Pain Nutrition/Malnutrition Assess - Dietary Evaluation Nutrition/Malnutrition Findings: Nutrition Notes Start: 09/25/20 09:40 Freq: Status: Active Protocol: Document 09/25/20 09:41 HARISH (Rec: 09/25/20 09:42 HARISH [id number]) Nutrition Notes Need for Assessment generated from: rfid developer Initial or Follow up Brief Note Subjective/Other Information Pt screened for skin risk, however, Keegan score is 20. Pt will be assessed upon further consult or LOS. Burn Absent Trauma Absent
[2020-09-26] MEDS: FAMOTIDINE 10 MG TAB PO SCH ×2 (09:37→22:30)
[2020-09-26] MEDS: NIFEdipine XL 90 MG TAB PO SCH (09:37)
[2020-09-26] MEDS: APIXABAN 5 MG TAB PO SCH ×2 (09:37→22:28)
[2020-09-26] MEDS: METOPROLOL TARTRATE 25 MG TAB PO SCH ×2 (09:38→22:29)
--- NOTE | 2020-09-26 09:42 | Progress Note ---
Assessment and Plan Assessment and Plan Assessment and plan: 69-year-old -[place] male who is a former smoker with history of CHF and hypertension who presents [facility] ED with complaints of dyspnea x1 to 2 weeks. Patient states that he has dyspnea at rest which is worse with exertion for the past 1 to 2 weeks. He has been using his home rescue inhaler (albuterol) and nebulizer more frequently without any relief. He denies cough, fever, PND, orthopnea, bilateral lower extremity swelling, generalized weakness. Patient has a EF of 50 to 55% with severe LVH seen on echo done at outpatient facility ([facility] 08/2015). Patient states he does not follow-up with manager information on a regular basis. #he is with change in mentation and lethargy-- Improved today -R/O CVA -new onset AF -On heparine - possible left facial droop -EF# 20% -MRI brain -- is unremarkable no CVA is noted #new onset atrial fibrillation -Rate control with heart rate of 86 bpm -Initiate heparin protocol -On heparin drip-- will be started today on oral AC -Echo Ef#20% -On continuous remote telemetry -Cardiology consulted #NSTEMI -Elevated troponin x1 at 1.030 -On heparin drip -Cardiology consulted #[place] [address] -EF , EF 50-55% (08/2015) -Troponin x1, will trend -CXR negative -No diuresing due to borderline hypotension #YULI -Cr on admission 2.0 ( baseline 1.3 07/2018) -Monitor BMP #HTN -Presently borderline hypotension -Monitor BP -Hold all antihypertensive meds for now, resume when appropriate PLAN 1- As per PCP and cardiology 2- will sign off Subjective Date of service: 09/26/20 Principal diagnosis: A/C HFrEF, YULI, New Onset AF w RVR, NSTEMI 2 Interval history: Much more awak today eating breakfast oriented to place not date knows his birthdate Objective - Vital Sign Vital Signs - 12hr 09/25/20 09/25/20 09/25/20 22:00 23:01 23:07 Temperature Pulse Rate 74 88 91 H Pulse Rate [ From Monitor] Respiratory 22 34 H 34 H Rate Blood Pressure 139/83 165/103 165/103 O2 Sat by Pulse 99 98 99 Oximetry 09/25/20 09/25/2009/26/21 23:08 23:45 00:00 Temperature 98.2 F Pulse Rate 91 H 90 Pulse Rate [ 90 From Monitor] Respiratory 43 H Rate Blood Pressure 169/104 177/103 O2 Sat by Pulse 97 Oximetry 09/26/20 09/26/20 09/26/20 00:53 01:00 02:00 Temperature Pulse Rate 84 89 99 H Pulse Rate [ From Monitor] Respiratory 40 H 45 H Rate Blood Pressure 177/103 166/94 202/114 O2 Sat by Pulse 98 97 Oximetry 09/26/20 09/26/20 09/26/20 03:01 03:04 04:00 Temperature 98.8 F Pulse Rate 94 H 90 90 Pulse Rate [ 89 From Monitor] Respiratory 37 H 31 H Rate Blood Pressure 170/95 170/95 126/74 O2 Sat by Pulse 97 98 Oximetry 09/26/20 09/26/20 09/26/20 05:00 06:01 07:00 Temperature 98.7 F Pulse Rate 87 92 H Pulse Rate [ From Monitor] Respiratory 27 H 31 H Rate Blood Pressure 116/83 158/79 O2 Sat by Pulse 98 97 Oximetry 09/26/20 09/26/20 09/26/20 07:01 08:11 09:38 Temperature Pulse Rate 87 98 H Pulse Rate [ From Monitor] Respiratory 26 H Rate Blood Pressure 181/90 160/83 O2 Sat by Pulse 98 100 Oximetry - General Apperance Constitutional: comfortable - EENT EENT: PERRL, mucous membranes moist - Respiratory Respiratory: chest non-tender, lungs clear, rhonchi - Cardiovascular Cardiovascular: other (irregular ) Extremities: no peripheral edema bilat, no clubbing, cyanosis - Gastrointestinal Gastrointestinal: normoactive bowel sounds, absent bowel sounds - Integumentary Integumentary: normal - Neurologic Cranial nerve examination: PERRL, EOMI, intact Speech examination: intact Detailed motor examination: grossly full strength in - Laboratory Findings CBC and BMP: 09/26/20 05:17 09/25/20 06:49 Abnormal Lab Findings: Abnormal Labs 09/24/20 09/24/20 09/24/20 04:19 04:19 04:38 INR 1.17 H Heparin Anti-Xa Level BUN 22 H Creatinine 2.0 H Glucose 186 H Calcium 8.2 L AST 68 H Troponin T 1.030 H* NT-Pro-B Natriuret Pep 33731 H HDL Cholesterol 37 L 09/24/20 09/24/20 09/24/20 07:42 13:32 21:05 INR Heparin Anti-Xa Level 1.25 H 1.30 H BUN Creatinine Glucose Calcium AST Troponin T 0.883 H* NT-Pro-B Natriuret Pep HDL Cholesterol 09/25/20 09/25/20 09/25/20 06:49 06:49 13:43 INR Heparin Anti-Xa Level 1.12 H BUN 30 H Creatinine 1.8 H Glucose 111 H Calcium 8.0 L AST Troponin T 0.431 H* D NT-Pro-B Natriuret Pep HDL Cholesterol 09/25/20 09/25/20 22:43 22:43 INR Heparin Anti-Xa Level 0.78 H BUN Creatinine Glucose Calcium AST Troponin T 0.407 H* NT-Pro-B Natriuret Pep HDL Cholesterol
[2020-09-26] MEDS ORDERED: NON-FORMULARY EACH (Clonidine Hcl [Kapvay] 0.1 MG Tab.Er.12h) PO SCH (10:00)
[2020-09-26 10:20] LABS: Basophils % (Auto) 0.2 % (0.0-1.8); Eosinophils % (Auto) 0.3 % (0.0-4.3); Hematocrit 44.3 % (35.5-45.6); Hemoglobin 14.8 gm/dl (11.8-15.2); Lymphocytes # (Auto) 1.5 K/mm3 (1.2-5.4); Lymphocytes % (Auto) 16.8 % (13.4-35.0); Mean Corpuscular HGB Conc 33 % (32-34); Mean Corpuscular Volume 93 fl (84-94); Monocytes # (Auto) 0.9 K/mm3 (0.0-0.8); Platelet Count 168 K/mm3 (140-440); Red Blood Count 4.77 M/mm3 (3.65-5.03); Red Cell Distribution Width 14.6 % (13.2-15.2)
--- NOTE | 2020-09-26 10:27 | Electrocardiograph Report ---
[facility] Test Date: 2020-09-24 Test Time: 05:32:46 Pat Name: BREEZY JACKSON Department: Room: A264 1 Gender: M [employer] Supervisor: NATHANIEL : 1950 Requested By: ANTHONY EASON Order Number: [id number] Reading MD: Claudio Esparza Measurements Intervals [place] Rate: 83 P: MO: QRS: 65 QRSD: 105 T: 84 QT: 423 QTc: 497 Interpretive Statements Atrial fibrillation Probable LVH with secondary repol abnrm No previous ECG available for comparison Electronically Signed On 09-26-2020 10:27:18 EDT by Claudio Esparza
[2020-09-26 10:28] LABS: INR 1.25 (0.87-1.13)
[2020-09-26 10:34] LABS: Calcium 8.8 mg/dL (8.4-10.2)
[2020-09-26 10:40] LABS: Partial Thromboplastin Time 94.2 Sec. (24.2-36.6)
--- NOTE | 2020-09-26 11:00 | Progress Note ---
Assessment and Plan Continue PRN IV diuresis with strict I/Os. Continue BB as tolerated. ARB held in he setting of YULI. Will consider addition of Aldactone when renal fxn is stable. Will otherwise resume home Clonidine to optimize BP and avoid rebound HTN. Cardiac enzymes trending down. Pt denies chest pain. Suspect NSTEMI Type 2 in the setting of acutely decompensated HF and YULI. May consider ischemic eval as an outpatient if warranted. Continue Eliquis for AF anticoagulation. Plan for eventual outpatient eval of valvulopathy. Pt seen in conjunction with Dr. Esparza, who agrees with the assessment and plan of care. - Patient Problems (1) Asthma Current Visit: Yes Status: Chronic (2) Acute on chronic HFrEF (heart failure with reduced ejection fraction) Current Visit: Yes Status: Acute (3) YULI (acute kidney injury) Current Visit: Yes Status: Acute (4) Congestive cardiomyopathy Current Visit: Yes Status: Chronic (5) Severe mitral regurgitation Current Visit: Yes Status: Chronic (6) Severe tricuspid regurgitation Current Visit: Yes Status: Chronic (7) New onset atrial fibrillation Current Visit: Yes Status: Resolved (8) NSTEMI (non-ST elevated myocardial infarction) Current Visit: Yes Status: Acute Plan to address problem: Type 2 (9) HTN (hypertension) Current Visit: Yes Status: Chronic Qualifiers: Hypertension type: essential hypertension Qualified Code(s): I10 - Essential (primary) hypertension (10) HLD (hyperlipidemia) Current Visit: Yes Status: Chronic Qualifiers: Hyperlipidemia type: mixed hyperlipidemia Qualified Code(s): E78.2 - Mixed hyperlipidemia (11) Medical non-compliance Current Visit: Yes Status: Chronic Subjective Date of service: 09/26/20 Principal diagnosis: A/C HFrEF, UYLI, New Onset AF w RVR, NSTEMI 2 Interval history: Awake and alert upon exam. Sitting up comfortably in bed. States he feels good. Reports mild SOB. Otherwise no new complaints. BP elevated this AM. Tele reviewed - SR 80-90s, no events overnight. Objective Last Vital Signs Temp 98.7 F 09/26/20 07:00 Pulse 100 H 09/26/20 10:00 Resp 41 H 09/26/20 10:00 BP 204/125 09/26/20 10:00 Pulse Ox 93 09/26/20 10:00 - Physical Examination General: No Apparent Distress HEENT: Positive: EOMI, Normocephaly, Mucus Membranes Moist Neck: Positive: neck supple, trachea midline. Negative: JVD/HJR Cardiac: Positive: Reg Rate and Rhythm, S1/S2, Systolic Murmur (grade 2/6) Lungs: Positive: Decreased Breath Sounds (bases) Neuro: Positive: Grossly Intact Abdomen: Positive: Soft. Negative: Tender Skin: Negative: Rash Musculoskeletal: No Pain Extremities: Present: upper extr. pulses, lower extr. pulses, warm. Absent: edema - Labs and Meds Coagulation 09/26/20 Range/Units 09:28 PT 15.5 H (12.2-14.9) Sec. INR 1.25 H (0.87-1.13) APTT 94.2 H* (24.2-36.6) Sec. CBC 09/26/20 09/26/20 Range/Units 05:17 09:28 WBC 8.9 (4.5-11.0) K/mm3 RBC 4.77 (3.65-5.03) M/mm3 Hgb 14.2 14.8 (11.8-15.2) gm/dl Hct 41.7 44.3 (35.5-45.6) % Plt Count 155 168 (140-440) K/mm3 Lymph # (Auto) 1.5 (1.2-5.4) K/mm3 [place] # (Auto) 0.9 H (0.0-0.8) K/mm3 Eos # (Auto) 0.0 (0.0-0.4) K/mm3 Baso # (Auto) 0.0 (0.0-0.1) K/mm3 Comprehensive Metabolic Panel 09/26/20 09/26/20 Range/Units 09:28 09:28 Sodium 142 (137-145) mmol/L Potassium 3.5 L (3.6-5.0) mmol/L Chloride 102.8 (98-107) mmol/L Carbon Dioxide 27 (22-30) mmol/L BUN 24 H (9-20) mg/dL Creatinine 1.6 H 1.5 H (0.8-1.3) mg/dL Glucose 90 (75-100) mg/dL Calcium 8.8 (8.4-10.2) mg/dL - Imaging and Cardiology EKG: report reviewed, image reviewed Echo: report reviewed (09/23/2020 - LV mildly dilated, mod concentric LVH, EF 20%, RV mild-mod dilated, RV sys fxn mod reduced, mild AR, severe MR, severe TR, RVSP 31mmHg) Cardiac cath: report reviewed (2011 - no evidence of significant epicardial coronary disease, severe LV dysfxn, EF 20-25%, no evidence of , patent renal arteries bilaterally) - Telemetry EKG Rhythm: Sinus Rhythm - EKG Supraventricular dysrhythmia: atrial fibrillation Repolarization changes or abnormalities: nonspecific abnormality, ST segment, and/or T wave - Allied health notes Allied health notes reviewed: nursing
[2020-09-26] MEDS ORDERED: FUROSEMIDE 20 MG/2 ML INJ IV ONE (12:00)
[2020-09-26] MEDS ORDERED: POTASSIUM CHLORIDE ER 20 MEQ TAB PO SCH (13:00)
[2020-09-26] MEDS: cloNIDine 0.1 MG TAB PO SCH ×2 (15:51→22:30)
[2020-09-27 08:38] VITALS: BP 159/95
[2020-09-27] MEDS ORDERED: POTASSIUM CHLORIDE ER 20 MEQ TAB PO NR (09:13)
--- NOTE | 2020-09-27 09:14 | Discharge Summary ---
Providers - Providers Date of Admission: 09/24/20 05:49 Attending physician: DOUGLAS PLUMMER MD 09/24/20 05:55 Consult to Physician [CONS] Routine Comment: called answ. serv./ wendy Consulting Provider: TAMIKA WILSON Physician Instructions: Reason For Exam: new onset afib, elevated trop 09/25/20 11:58 Occupational Therapy Evaluate and Treat [CONS] Routine Comment: Reason For Exam: Debility Physical Therapy Evaluation and Treat [CONS] Routine Comment: Reason For Exam: Debility 09/25/20 13:12 Consult to Physician [CONS] Routine Comment: Consulting Provider: ANNA COREY Physician Instructions: Reason For Exam: AMS Primary care physician: EMBOSSING CLERK Hospitalization Reason for admission: Congestive heart failure Condition: Serious Hospital course: 69-year-old -[place] male who is a former smoker with history of CHF and hypertension who presents [facility] ED with complaints of dyspnea x1 to 2 weeks. Patient states that he has dyspnea at rest which is worse with exertion for the past 1 to 2 weeks. He has been using his home rescue inhaler (albuterol) and nebulizer more frequently without any relief. He denies cough, fever, PND, orthopnea, bilateral lower extremity swelling, generalized weakness. Patient has a EF of 50 to 55% with severe LVH seen on echo done at outpatient facility ([facility] 08/2015). Patient states he does not follow-up with inspector packager on a regular basis. His primary care physician is Dr. Lou, which he follows on a regular basis. Patient is a and lives with his adult daughter. Denies recent tobacco use. Denies nausea, vomiting, diarrhea, chest pain, palpitations, headache, cough, hemoptysis, or recent sick contacts. Per inspector packager: Left heart catheterization 03/05/2012: No angiographically significant evidence of epicardial CAD, severe LV dysfunction EF 20 to 25%, no evidence of aortic stenosis, bilateral renal arteries are patent Echocardiogram 08/22/2015: Normal LV systolic function EF 50 to 55%, severe concentric left ventricular hypertrophy, diastolic dysfunction impaired relaxation, mild to moderate aortic regurgitation, moderate mitral regurgitation, moderate tricuspid regurgitation, RVSP 48 mmHg 09/25: Although markedly lethargic, patient reports improvement in symptoms. Cardiology input noted agree with gentle diuresis and slowly initiate low-dose beta-eva. Continue to hold MELODY/ARB due to renal insufficiency. Follow echo report Otherwise continue other medical treatment aspiration precautions. Wean oxygen as tolerated. Monitor blood pressure and adjust as needed. Patient does have a little bit difficult continue to monitor this is likely secondary to BiPAP. DVT and GI prophylaxis 09/26: Patient seen and examined this morning respiratory status improved no chest pain reported. Will adjust beta-eva to 25 mg p.o. twice daily continue to hold MELODY and ARB for renal insufficiency. Will restart nifedipine due to elevated blood pressure on hold clonidine at this point. Will obtain PT OT for debility management in anticipation for discharge. Patient can be transferred to telemetry. Cardiology continues to follow for the elevated troponin. Discussed with neurologist MRI is negative no acute stroke confusion is likely secondary to delirium and . Patient's daughter was updated yesterday. 09/27: Patient clinically improved. Blood pressure improving. Renal function improving will likely return to ARB or MELODY outpatient. Per cardiology outpatient cardiac eval. Will change patient to Eliquis and plan for discharge for continued management by inspector packager outpatient. We will also discussed with the daughter. Acute HFrEF 20% Severe mitral regurgitation/severe tricuspid regurgitation Atrial fibrillation with rapid ventricular response/new onset NSTEMI type II Delirium possible underlining dementia Acute kidney injury secondary to vasomotor nephropathy Hypertension Hyperlipidemia Asthma with no acute exacerbation Congestive cardiomyopathy Severe mitral regurgitation Severe tricuspid regurgitation Medical non-compliance Disposition: [id number] HOME UNDER HOME [facility] Final Discharge Diagnosis (Prints w/discharge instructions): Acute on chronic congestive heart failure with atrial fibrillation with RVR Time spent for discharge: 35 minutes Core Measure Documentation - Palliative Care Palliative Care/ Comfort Measures: Not Applicable - Core Measures Any of the following diagnoses?: heart failure - Heart Failure Discharge Requirements MELODY/ARB for LVSD if EF <40%: No Reason for no MELODY/ARB: Renal impairment Beta eva at discharge: Yes Exam - Physical Exam Narrative exam: General appearance: Present: No acute distress, alert and oriented 3, pleasant, well-nourished, older adult male - EENT Eyes: Present: PERRL, EOM intact ENT: hearing intact, no dentition - Neck Neck: Present: supple, normal ROM mild irritation at the bridge of the nose - Respiratory Respiratory effort: Non-labored Respiratory: Diminished bases - Cardiovascular Heart rate: 88 (bpm) Rhythm: A. fib Heart Sounds: Present: S1 & S2. Absent: rub, click - Extremities Extremities: no ischemia, pulses intact, - Peripheral Assessment Peripheral Pulses: within normal limits - Abdominal General gastrointestinal: soft, non-tender, normal bowel sounds - Integumentary Integumentary: Present: warm, dry - Musculoskeletal Musculoskeletal: Able to move all extremities -Neurological Neurological: CN II-XII intact - Psychiatric Psychiatric: Appropriate for situation ,cooperative - Constitutional Vitals: Temp Pulse Resp BP Pulse Ox 99.6 F 82 20 159/95 96 09/27/20 08:03 09/27/20 08:03 09/27/20 08:03 09/27/20 08:03 09/27/20 08:03 Plan Activity: advance as tolerated, fall precautions Diet: low salt Special Instructions: record daily weights, record daily BP diary Follow up with: PRIMARY CARE, [Primary Care Provider] - 3-5 Days CECILIA BLAIR MD [Staff Physician] - 7 Days NICOLAS ARANDA MD [Staff Physician] - 7 Days Prescriptions: hydrALAZINE [Apresoline TAB] 20 mg PO Q8H PRN #90 tablet PRN Reason: SBP >/=160; DBP >/=100 Apixaban [Eliquis] 5 mg PO Q12HR #60 tablet Furosemide [Lasix TAB] 40 mg PO QDAY #60 tab Metoprolol [Lopressor TAB] 25 mg PO BID #60 tablet Famotidine [Pepcid] 10 mg PO BID #60 tablet
[2020-09-27] MEDS ORDERED: FUROSEMIDE 40 MG TAB PO SCH (10:00)
[2020-09-27] MEDS: cloNIDine 0.1 MG TAB PO SCH (10:29)
[2020-09-27] MEDS: METOPROLOL TARTRATE 25 MG TAB PO SCH (10:29)
[2020-09-27] MEDS: APIXABAN 5 MG TAB PO SCH (10:29)
[2020-09-27] MEDS: NIFEdipine XL 90 MG TAB PO SCH (10:29)
[2020-09-27] MEDS: FAMOTIDINE 10 MG TAB PO SCH (10:29)
--- NOTE | 2020-09-27 17:48 | Progress Note ---
Assessment and Plan Transition to PO Lasix. Continue BB as tolerated. ARB held in he setting of YULI. Will consider addition of Aldactone when renal fxn is stable (may be done as an outpatient). Will recheck BMP as outpatient x 1 week. Otherwise stable cardiac status. Pt may be discharged from a Cardiology perspective. Recommend follow-up with Dr. VI Webb within 1-2 weeks ([phone]). Plan for eventual outpatient eval of valvulopathy. Pt seen in conjunction with Dr. Esparza, who agrees with the assessment and plan of care. - Patient Problems (1) Asthma Status: Chronic (2) Acute on chronic HFrEF (heart failure with reduced ejection fraction) Status: Acute (3) YULI (acute kidney injury) Status: Acute (4) Congestive cardiomyopathy Status: Chronic (5) Severe mitral regurgitation Status: Chronic (6) Severe tricuspid regurgitation Status: Chronic (7) New onset atrial fibrillation Status: Resolved (8) NSTEMI (non-ST elevated myocardial infarction) Status: Acute Plan to address problem: Type 2 (9) HTN (hypertension) Status: Chronic Qualifiers: Hypertension type: essential hypertension Qualified Code(s): I10 - Essential (primary) hypertension (10) HLD (hyperlipidemia) Status: Chronic Qualifiers: Hyperlipidemia type: mixed hyperlipidemia Qualified Code(s): E78.2 - Mixed hyperlipidemia (11) Medical non-compliance Status: Chronic Subjective Date of service: 09/27/20 Principal diagnosis: A/C HFrEF, YULI, New Onset AF w RVR, NSTEMI 2 Interval history: No complaints. States he feels good. Wants to go home. BP much better this AM. Tele reviewed - SR 80-90s, no events overnight. Objective Last Vital Signs Temp 99.6 F 09/27/20 08:03 Pulse 82 09/27/20 10:29 Resp 20 09/27/20 10:00 BP 159/95 09/27/20 10:29 Pulse Ox 100 09/27/20 11:51 - Physical Examination General: No Apparent Distress HEENT: Positive: EOMI, Normocephaly, Mucus Membranes Moist Neck: Positive: neck supple, trachea midline. Negative: JVD/HJR Cardiac: Positive: Reg Rate and Rhythm, S1/S2 Lungs: Positive: clear to auscultation (bilaterally) Neuro: Positive: Grossly Intact Abdomen: Positive: Soft. Negative: Tender Skin: Negative: Rash Musculoskeletal: No Pain Extremities: Present: upper extr. pulses, lower extr. pulses, warm. Absent: edema - Imaging and Cardiology EKG: report reviewed, image reviewed Echo: report reviewed (09/23/2020 - LV mildly dilated, mod concentric LVH, EF 20%, RV mild-mod dilated, RV sys fxn mod reduced, mild AR, severe MR, severe TR, RVSP 31mmHg) Cardiac cath: report reviewed (2011 - no evidence of significant epicardial coronary disease, severe LV dysfxn, EF 20-25%, no evidence of , patent renal arteries bilaterally) - Telemetry EKG Rhythm: Sinus Rhythm - EKG Supraventricular dysrhythmia: atrial fibrillation Chamber hypertrophy or enlargement: left ventricular hypertro Repolarization changes or abnormalities: nonspecific abnormality, ST segment, and/or T wave - Allied health notes Allied health notes reviewed: nursing
== END 2020-09-27 14:48 | disposition home health service (06) | DRG 280 ==
LOC: ED 03:43 → IMCU 05:49 → 4A 09-26 21:21
PROVIDERS: ADMIT Hospitalist; ATTEND Internal Medicine
PROC: 5A09357 Assistance with Respiratory Ventilation, Less than 24 Consecutive Hours, Continuous Positive Airway Pressure (ICD-10-PCS; principal; 2020-09-25)
DX: I11.0 Hypertensive heart disease with heart failure (principal); I21.A1 Myocardial infarction type 2; N17.0 Acute kidney failure with tubular necrosis; F05 Delirium due to known physiological condition; I50.23 Acute on chronic systolic (congestive) heart failure; I08.1 Rheumatic disorders of both mitral and tricuspid valves; E78.2 Mixed hyperlipidemia; I42.0 Dilated cardiomyopathy; I48.91 Unspecified atrial fibrillation; Z20.822 Contact with and (suspected) exposure to COVID-19; J45.909 Unspecified asthma, uncomplicated; F03.90 Unspecified dementia, unspecified severity, without behavioral disturbance, psychotic disturbance, mood disturbance, and anxiety; Z87.891 Personal history of nicotine dependence; Z63.4 Disappearance and death of family member; Z82.49 Family history of ischemic heart disease and other diseases of the circulatory system; Z91.19 Patient's noncompliance with other medical treatment and regimen; Z95.818 Presence of other cardiac implants and grafts
CPT/HCPCS: 36415; 70450; 70551; 71045; 80048; 80053; 80061; 82565; 83880; 84484; 85014; 85018; 85025; 85049; 85520; 85610; 85730; 93005; 93306; 94640; 94644; 94660; 96361; 96374; G0378; A9270-GY; J0360; J1630; J1644; J1940; J2060; J7040; U0003